=== PATIENT | female | born 1955 | race Caucasian/White ===

== ENCOUNTER 2018-11-20 19:25 | Inpatient (IN) | payer OTHER ==
[~2018-11-20] VITALS: Ht 167.6 cm; Wt 56.5 kg
[2018-11-20 19:43] VITALS: Ht 167.6 cm; Wt 56.5 kg
[2018-11-21] MEDS ORDERED: ONDANSETRON 4 MG INJ IV STA (01:42)
--- NOTE | 2018-11-21 02:18 | ERD ---
ER Documentation Chief Complaint Chief Complaint EPIGASTRIC/ ABD PAIN X'S 1 WEEK HPI This is a 63-year-old woman complaining of increasing abdominal distention, bloating, diffuse cramping times 1 month. She states symptoms began after her unexpectedly earlier this month. She also states she has had increasing lower extremity edema over the last month which is new for her. She does have a history of CEA positive ovarian cancer which she states was treated with chemotherapy about 28 years ago. She states today she had one episode of clear nonbloody nonbilious emesis. She denies weight loss, no fevers or chills, no blood per rectum or melena. She denies chest pain or shortness of breath. ROS All systems reviewed and are negative except as per history of present illness. Medications Home Meds Reported Medications Benazepril Hcl* (Benazepril Hcl*) 20 Mg Tablet, 20 MG PO DAILY, #30 TAB 11/21/18 Allergies Allergies: Coded Allergies: No Known Allergy (Unverified , 11/20/18) PMhx/Soc History of ovarian CA Hx Alcohol Use: No Hx Substance Use: No Hx Tobacco Use: No Smoking Status: Never smoker FmHx Family History: No diabetes Physical Exam Vitals Vital Signs Date Temp Pulse Resp B/P (MAP) Pulse Ox O2 O2 Flow FiO2 Time Delivery Rate 11/21/18 97.8 90 122/74 97 Room Air 01:31 (90) 11/20/18 98.8 105 18 145/86 97 19:43 (105) Physical Exam Const: No acute distress, afebrile Head: Atraumatic Eyes: Normal Conjunctiva ENT: Normal External Ears, Nose and Mouth. Neck: Full range of motion. No meningismus. Resp: Clear to auscultation bilaterally Cardio: Regular rate and rhythm, no murmurs Abd: Bloated, soft protuberant abdomen, no guarding or masses palpated, no rigidity Skin: No petechiae or rashes Back: No midline or flank tenderness Ext: No cyanosis, 2+ pitting edema in the lower extremities bilaterally, calves symmetrical Neur: Awake and alert x3, no focal deficits or facial asymmetry, pupils equal round reactive to light Psych: Normal Mood and Affect Result Diagram: 11/21/18 0132 11/21/18 0132 Results 24 hrs Laboratory Tests Test 11/21/18 01:32 11/21/18 02:16 White Blood Count 6.0 10^3/ul Red Blood Count 3.58 10^6/ul Hemoglobin 10.8 g/dl Hematocrit 33.6 % Mean Corpuscular Volume 93.9 fl Mean Corpuscular Hemoglobin 30.2 pg Mean Corpuscular Hemoglobin Concent 32.1 g/dl Red Cell Distribution Width 14.4 % Platelet Count 346 10^3/UL Mean Platelet Volume 9.1 fl Immature Granulocytes % 0.300 % Neutrophils % 63.1 % Lymphocytes % 26.6 % Monocytes % 7.8 % Eosinophils % 1.7 % Basophils % 0.5 % Nucleated Red Blood Cells % 0.0 /100WBC Immature Granulocytes # 0.020 10^3/ul Neutrophils # 3.8 10^3/ul Lymphocytes # 1.6 10^3/ul Monocytes # 0.5 10^3/ul Eosinophils # 0.1 10^3/ul Basophils # 0.0 10^3/ul Nucleated Red Blood Cells # 0.0 10^3/ul Prothrombin Time 12.6 Sec Prothrombin Time Ratio 1.0 INR International Normalized Ratio 0.93 Activated Partial Thromboplast Time 29.6 Sec Sodium Level 136 mmol/L Potassium Level 4.0 mmol/L Chloride Level 103 mmol/L Carbon Dioxide Level 24 mmol/L Anion Gap 9 Blood Urea Nitrogen 21 mg/dl Creatinine 1.50 mg/dl Est Glomerular Filtrat Rate mL/min 35 mL/min Glucose Level 93 mg/dl Calcium Level 9.6 mg/dl Total Bilirubin 0.4 mg/dl Direct Bilirubin 0.00 mg/dl Indirect Bilirubin 0.4 mg/dl Aspartate Amino Transf (AST/SGOT) 37 IU/L Alanine Aminotransferase (ALT/SGPT) 27 IU/L Alkaline Phosphatase 51 IU/L Troponin I < 0.012 ng/ml B-Type Natriuretic Peptide 127 PG/ML Total Protein 6.6 g/dl Albumin 3.8 g/dl Globulin 2.80 g/dl Albumin/Globulin Ratio 1.35 Lipase 231 U/L Urine Color YELLOW Urine Clarity SLIGHTLY CLOUDY Urine pH 5.0 Urine Specific [place] 1.008 Urine Ketones TRACE mg/dL Urine Nitrite NEGATIVE mg/dL Urine Bilirubin NEGATIVE mg/dL Urine Urobilinogen NEGATIVE mg/dL Urine Leukocyte Esterase NEGATIVE Xuan/ul Urine Microscopic RBC 2 /HPF Urine Microscopic WBC 2 /HPF Urine Squamous Epithelial Cells FEW /HPF Urine Hemoglobin NEGATIVE mg/dL Urine Glucose NEGATIVE mg/dL Urine Total Protein NEGATIVE mg/dl Current Medications Medications Dose Sig/Irena Start Time Status Last (Trade) Ordered Route PRN Stop Time Admin Dose Reason Admin Ondansetron 4 mg ONCE STAT 11/21/18 DC 11/21/18 HCl (Zofran IV 01:42 02:14 Inj) 11/21/18 01:43 Procedures/MDM IV line was established patient was placed on lift supervisor rhythm strip revealed a sinus rhythm at about 80 bpm with upright P and T waves. Patient was afebrile I administered Zofran 4 mg IV x1 for nausea. EKG performed, read by me: 83 bpm, normal sinus rhythm, normal axis, no acute ST segment changes, narrow QRS complex, with good R-wave progression in precordial leads. Chest X-ray 1V Interpreted by me: Soft Tissue: No acute abnormalities Bones: No acute abnormalities Mediastinum/Cardiac Silhouette/Lungs: No acute abnormalities CBC was normal, electrolytes revealed dehydration with a BUN/creatinine of 21/1.5, liver function tests were normal, troponin was negative, urinalysis negative for infection CT scan of the abdomen and pelvis was performed,IMPRESSION: 1. Large diffuse ascites and mild anasarca. 2. Extensive left upper quadrant mesenteric/omental stranding and nodularity may reflect pathologic lymphadenopathy or peritoneal carcinomatosis. 3. Multiple embolic coils noted in the left pelvic sidewall, with associated star artifact limiting pelvic evaluation. 4. Question gastric wall thickening in the fundus and body, which may be artif actual due to incomplete distension or could reflect gastritis or neoplasm. Clinical correlation recommended with consideration for further evaluation with upper endoscopy. 5. Tiny sliding hiatal hernia. The bowel is unobstructed without evidence of perforation, and the appendix is nondilated. 6. Cholelithiasis versus sludge in the mildly distended gallbladder. This can be better evaluated with nuclear medicine HIDA scan if clinically warranted. 7. No nephrolithiasis nor hydronephrosis. Patient has new mesenteric lymphadenopathy with peritoneal carcinomatosis concerning for ovarian carcinoma. Patient will be admitted to [facility] for continued medical management Departure Diagnosis: Primary Impression: Carcinomatosis Additional Impressions: Ovarian cancer Laterality: bilateral Qualified Codes: C56.1 - Malignant neoplasm of right ovary; C56.2 - Malignant neoplasm of left ovary Intractable abdominal pain Acute kidney injury Condition: Fair ZOHRABIAN,ASHLIE MD Nov 21, 2018 02:18
[2018-11-21] MEDS ORDERED: BENA20TA4 PO (03:15)
[2018-11-21 04:15] VITALS: BP 106/56; PULSE 87; RESP 20
[2018-11-21] MEDS ORDERED: FUROSEMIDE 20 MG INJ IV ONE (04:30)
[2018-11-21] MEDS ORDERED: ACETAMINOPHEN 325 MG TAB PO PRN (04:30)
[2018-11-21] MEDS ORDERED: ALBUTEROL/IPRATROPIUM (NEB) 3 ML AMP HHN PRN (04:30)
[2018-11-21] MEDS ORDERED: NACL 0.9% 3 ML SYG IV SCH (04:30)
[2018-11-21] MEDS ORDERED: ONDANSETRON 4 MG INJ IV PRN (04:30)
--- NOTE | 2018-11-21 05:58 | HP ---
Date/Time of Note Date/Time of Note DATE: 11/21/18 TIME: 05:58 Assessment/Plan VTE Prophylaxis SCD applied (from Nsg): Yes Pharmacological prophylaxis: NA/contraindicated Pharm contraindication: other (Awaiting paracentesis) Lines/Catheters IV Catheter Type (from Nrsg): Saline Lock Assessment/Plan Assessment/Plan 1. Abdominal pain/distention: CT shows large ascites and likely metastatic process. (Patient with a history of ovarian cancer almost 30 years ago) -will give a dose of Lasix -Paracentesis. Sample will be sent for cytology as well 2. History of ovarian cancer (30 years ago), now with a CT finding concerning for metastatic process -Oncology consult -Check CEA. Reportedly ovarian cancer was CEA positive 3. Presumed acute renal insufficiency: will give albumin prior to paracentesis -Renal ultrasound and nephrology consult 4. Anemia, likely of chronic disease: Check ferritin/iron. Transfuse as needed 5. Hypertension: BP is in acceptable range Result Diagram: 11/21/18 0132 11/21/18 0132 Results 24hrs Laboratory Tests Test 11/21/18 01:32 11/21/18 02:16 White Blood Count 6.0 Red Blood Count 3.58 L Hemoglobin 10.8 L Hematocrit 33.6 L Mean Corpuscular Volume 93.9 Mean Corpuscular Hemoglobin 30.2 Mean Corpuscular Hemoglobin Concent 32.1 Red Cell Distribution Width 14.4 Platelet Count 346 Mean Platelet Volume 9.1 Immature Granulocytes % 0.300 Neutrophils % 63.1 Lymphocytes % 26.6 Monocytes % 7.8 Eosinophils % 1.7 Basophils % 0.5 Nucleated Red Blood Cells % 0.0 Immature Granulocytes # 0.020 Neutrophils # 3.8 Lymphocytes # 1.6 Monocytes # 0.5 Eosinophils # 0.1 Basophils # 0.0 Nucleated Red Blood Cells # 0.0 Prothrombin Time 12.6 Prothrombin Time Ratio 1.0 INR International Normalized Ratio 0.93 Activated Partial Thromboplast Time 29.6 Sodium Level 136 Potassium Level 4.0 Chloride Level 103 Carbon Dioxide Level 24 Anion Gap 9 Blood Urea Nitrogen 21 H Creatinine 1.50 H Est Glomerular Filtrat Rate mL/min 35 L Glucose Level 93 Calcium Level 9.6 Total Bilirubin 0.4 Direct Bilirubin 0.00 Indirect Bilirubin 0.4 Aspartate Amino Transf (AST/SGOT) 37 Alanine Aminotransferase (ALT/SGPT) 27 Alkaline Phosphatase 51 Troponin I < 0.012 B-Type Natriuretic Peptide 127 H Total Protein 6.6 Albumin 3.8 Globulin 2.80 Albumin/Globulin Ratio 1.35 Lipase 231 Urine Color YELLOW Urine Clarity SLIGHTLY CLOUDY A Urine pH 5.0 Urine Specific [place] 1.008 Urine Ketones TRACE A Urine Nitrite NEGATIVE Urine Bilirubin NEGATIVE Urine Urobilinogen NEGATIVE Urine Leukocyte Esterase NEGATIVE Urine Microscopic RBC 2 Urine Microscopic WBC 2 Urine Squamous Epithelial Cells FEW Urine Hemoglobin NEGATIVE Urine Glucose NEGATIVE Urine Total Protein NEGATIVE HPI/ROS Admit Date/Time Admit Date/Time Nov 21, 2018 at 03:20 Hx of Present Illness This is a 63-year-old female with a history of hypertension and ovarian cancer almost 30 years ago who presented to the ER complaining of progressively worsening abdominal pain/distention, lower extremity swelling, generalized weakness and nausea/vomiting. Symptom has been progressively getting worse for the past several weeks. In the ER, vitals have been stable except heart rate of 105 at initial presentation. Lab shows a creatinine of 1.5, hemoglobin almost 11. CT abdomen/pelvis shows large diffuse ascites and finding concerning for peritoneal carcinomatosis. Also noted was gastric wall thickening. PMH/Family/Social Past Medical History Medical History: other (See HPI) Medications Current Medications IV Flush (NS 3 ml) 3 ml PER PROTOCOL IV Last administered on 11/21/18at 05:24; Admin Dose 3 ML; Start 11/21/18 at 04:30 Ondansetron HCl (Zofran Inj) 4 mg Q6H PRN IV NAUSEA/VOMITING; Start 11/21/18 at 04:30 Acetaminophen (Tylenol Tab) 650 mg Q6H PRN PO .PAIN 1-3 OR TEMP; Start 11/21/18 at 04:30 Albuterol/ Ipratropium (Duoneb) 3 ml Q2H RESP THERAPY PRN HHN SHORTNESS OF BREATH; Start 11/21/18 at 04:30 Coded Allergies: No Known Allergy (Unverified , 11/20/18) Past Surgical History Past Surgical Hx: other (See HPI) Family History Significant Family History: other Social History Alcohol Use: none Smoking Status: Never smoker Drug Use: none Exam/Review of Systems Vital Signs Vitals Vital Signs Date Temp Pulse Resp B/P (MAP) Pulse Ox O2 O2 Flow FiO2 Time Delivery Rate 11/21/18 98.4 87 20 106/56 96 04:15 (73) 11/21/18 Room Air 03:42 Exam Constitutional: other (No acute distress) Head: normocephalic, atraumatic Eyes: EOMI, PERRL Respiratory: other (Decreased breath sounds at the base bilaterally) Cardiovascular: regular rate and rhythm Gastrointestinal: distended, tender Extremities: edema ANKIT DONG MD Nov 21, 2018 05:58
[2018-11-21] MEDS ORDERED: ALBUMIN HUMAN 25% 100 ML IV ONE (06:30)
[2018-11-21 07:29] VITALS: BP 115/54; PULSE 95; RESP 18
[2018-11-21] MEDS ORDERED: morphine 2 MG INJ IV PRN (12:30)
[2018-11-21 13:30] VITALS: BP 109/60; PULSE 90; RESP 18
--- NOTE | 2018-11-21 13:32 | PN ---
Date/Time of Note Date/Time of Note DATE: 11/21/18 TIME: 13:29 Assessment/Plan VTE Prophylaxis Risk score (from Ns)>0 risk: 4 SCD applied (from Ns): Yes SCD contraindicated: low risk/ambulating Pharmacological prophylaxis: LMWH Lines/Catheters IV [facility]from [facility] Saline Lock Assessment/Plan Hospital Course Assessment and plan 1. Abdominal discomfort distention, due to ascites, stable, paracentesis ending 2. Ascites new onset, decompensated cirrhosis vs peritoneal carcinomatosis? Check paracentesis 3. History of ovarian cancer 4. Anemia likely of chronic disease? 5. Suspected recurrent ovarian cancer with peritoneal carcinomatosis. Will consult oncology today or Friday. 6. Chronic kidney disease? 7. Left leg weakness? Rule out DVT. probably due to venous distention Subjective: Admitted with abdominal distention for a few weeks. No fever nausea. Appetite was poor. Possible weight loss. Alcohol or smoking. history of ovarian cancer. History of colonoscopy? Objective: Vital signs stable Physical exam No pathologic adenopathy Regular no murmur gallop Clear Bowel sounds diminished nontender mild distended no rigidity rebound guarding No edema mild left ankle noted Result Diagram: 11/21/18 0132 11/21/18 0132 Results 24hrs Laboratory Tests Test 11/21/18 01:30 11/21/18 01:32 11/21/18 02:16 Carcinoembryonic Antigen 1.2 White Blood Count 6.0 Red Blood Count 3.58 L Hemoglobin 10.8 L Hematocrit 33.6 L Mean Corpuscular Volume 93.9 Mean Corpuscular Hemoglobin 30.2 Mean Corpuscular 32.1 Hemoglobin Concent Red Cell Distribution Width 14.4 Platelet Count 346 Mean Platelet Volume 9.1 Immature Granulocytes % 0.300 Neutrophils % 63.1 Lymphocytes % 26.6 Monocytes % 7.8 Eosinophils % 1.7 Basophils % 0.5 Nucleated Red Blood Cells % 0.0 Immature Granulocytes # 0.020 Neutrophils # 3.8 Lymphocytes # 1.6 Monocytes # 0.5 Eosinophils # 0.1 Basophils # 0.0 Nucleated Red Blood Cells # 0.0 Prothrombin Time 12.6 Prothrombin Time Ratio 1.0 INR International 0.93 Normalized Ratio Activated Partial Thromboplast 29.6 Time Sodium Level 136 Potassium Level 4.0 Chloride Level 103 Carbon Dioxide Level 24 Anion Gap 9 Blood Urea Nitrogen 21 H Creatinine 1.50 H Est Glomerular Filtrat 35 L Rate mL/min Glucose Level 93 Calcium Level 9.6 Total Bilirubin 0.4 Direct Bilirubin 0.00 Indirect Bilirubin 0.4 Aspartate Amino 37 Transf (AST/SGOT) Alanine 27 Aminotransferase (ALT/SGPT) Alkaline Phosphatase 51 Troponin I < 0.012 B-Type Natriuretic Peptide 127 H Total Protein 6.6 Albumin 3.8 Globulin 2.80 Albumin/Globulin Ratio 1.35 Lipase 231 Urine Color YELLOW Urine Clarity SLIGHTLY CLOUDY A Urine pH 5.0 Urine Specific [place] 1.008 Urine Ketones TRACE A Urine Nitrite NEGATIVE Urine Bilirubin NEGATIVE Urine Urobilinogen NEGATIVE Urine Leukocyte Esterase NEGATIVE Urine Microscopic RBC 2 Urine Microscopic WBC 2 Urine Squamous FEW Epithelial Cells Urine Hemoglobin NEGATIVE Urine Glucose NEGATIVE Urine Total Protein NEGATIVE Exam/Review of Systems Exam Vitals Vital Signs Date Temp Pulse Resp B/P (MAP) Pulse Ox O2 O2 Flow FiO2 Time Delivery Rate 11/21/18 98.3 95 18 115/54 93 07:29 (74) 11/21/18 Room Air 03:42 Results Results 24hrs Laboratory Tests Test 11/21/18 01:30 11/21/18 01:32 11/21/18 02:16 Carcinoembryonic Antigen 1.2 White Blood Count 6.0 Red Blood Count 3.58 L Hemoglobin 10.8 L Hematocrit 33.6 L Mean Corpuscular Volume 93.9 Mean Corpuscular Hemoglobin 30.2 Mean Corpuscular 32.1 Hemoglobin Concent Red Cell Distribution Width 14.4 Platelet Count 346 Mean Platelet Volume 9.1 Immature Granulocytes % 0.300 Neutrophils % 63.1 Lymphocytes % 26.6 Monocytes % 7.8 Eosinophils % 1.7 Basophils % 0.5 Nucleated Red Blood Cells % 0.0 Immature Granulocytes # 0.020 Neutrophils # 3.8 Lymphocytes # 1.6 Monocytes # 0.5 Eosinophils # 0.1 Basophils # 0.0 Nucleated Red Blood Cells # 0.0 Prothrombin Time 12.6 Prothrombin Time Ratio 1.0 INR International 0.93 Normalized Ratio Activated Partial Thromboplast 29.6 Time Sodium Level 136 Potassium Level 4.0 Chloride Level 103 Carbon Dioxide Level 24 Anion Gap 9 Blood Urea Nitrogen 21 H Creatinine 1.50 H Est Glomerular Filtrat 35 L Rate mL/min Glucose Level 93 Calcium Level 9.6 Total Bilirubin 0.4 Direct Bilirubin 0.00 Indirect Bilirubin 0.4 Aspartate Amino 37 Transf (AST/SGOT) Alanine 27 Aminotransferase (ALT/SGPT) Alkaline Phosphatase 51 Troponin I < 0.012 B-Type Natriuretic Peptide 127 H Total Protein 6.6 Albumin 3.8 Globulin 2.80 Albumin/Globulin Ratio 1.35 Lipase 231 Urine Color YELLOW Urine Clarity SLIGHTLY CLOUDY A Urine pH 5.0 Urine Specific [place] 1.008 Urine Ketones TRACE A Urine Nitrite NEGATIVE Urine Bilirubin NEGATIVE Urine Urobilinogen NEGATIVE Urine Leukocyte Esterase NEGATIVE Urine Microscopic RBC 2 Urine Microscopic WBC 2 Urine Squamous FEW Epithelial Cells Urine Hemoglobin NEGATIVE Urine Glucose NEGATIVE Urine Total Protein NEGATIVE Medications Medication Current Medications IV Flush (NS 3 ml) 3 ml PER PROTOCOL IV Last administered on 11/21/18at 05:24; Admin Dose 3 ML; Start 11/21/18 at 04:30 Ondansetron HCl (Zofran Inj) 4 mg Q6H PRN IV NAUSEA/VOMITING; Start 11/21/18 at 04:30 Acetaminophen (Tylenol Tab) 650 mg Q6H PRN PO .PAIN 1-3 OR TEMP; Start 11/21/18 at 04:30 Albuterol/ Ipratropium (Duoneb) 3 ml Q2H RESP THERAPY PRN HHN SHORTNESS OF BREATH; Start 11/21/18 at 04:30 Enoxaparin Sodium (Lovenox) 40 mg DAILY SC ; Start 11/23/18 at 09:00 Famotidine (Pepcid) 20 mg DAILY PO ; Start 11/22/18 at 09:00 Morphine Sulfate (morphine) 2 mg Q2H PRN IV SEVERE PAIN LEVEL 7-10; Start 11/21/18 at 12:30 ORACIO IGNACIO MD Nov 21, 2018 13:32
[2018-11-21] MEDS ORDERED: LIDOCAINE 1% (MPF) 5 ML VIAL ONE (15:46)
[2018-11-21 20:00] VITALS: BP 124/57; PULSE 88; RESP 18
[2018-11-22 02:00] VITALS: BP 103/54; PULSE 92; RESP 18
[2018-11-22] MEDS: ALBUMIN HUMAN 25% 50 ML IV SCH ×3 (06:41→22:54)
[2018-11-22 07:45] VITALS: BP 107/54; PULSE 82; RESP 18
[2018-11-22] MEDS: FAMOTIDINE 20 MG TAB PO SCH (10:03)
--- NOTE | 2018-11-22 13:11 | PN ---
Date/Time of Note Date/Time of Note DATE: 11/22/18 TIME: 13:08 Assessment/Plan VTE Prophylaxis Risk score (from Ns)>0 risk: 4 SCD applied (from Ns): Yes SCD contraindicated: low risk/ambulating Pharmacological prophylaxis: LMWH Lines/Catheters IV [facility]atheter [facility] (from [facility]): Saline Lock Assessment/Plan Hospital Course Assessment and plan 1. Abd distention, due to ascites, stable, paracentesis- P 2. Ascites new onset, decompensated cirrhosis vs peritoneal carcinomatosis? Check paracentesis 3. History of ovarian cancer 4. Anemia likely of chronic disease? 5. 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 may need oncology consult once path back. 6. Chronic kidney disease? 7. Left leg weakness? no DVT. probably due to venous distention S: admitted with abdominal distention for a few weeks. No fever nausea. Appetite was poor. Possible weight loss. Alcohol or smoking. history of ovarian cancer. History of colonoscopy? 11/22 feels a little better. I updated her regarding the potential causes such as infection or cancer Objective: Vital signs stable Physical exam No pallor Regular no m/r/g Clear Bs dimin nt nd no r/r/g No edema mild left ankle noted Result Diagram: 11/22/18 0421 11/22/18 0421 Results 24hrs Laboratory Tests Test 11/21/18 15:30 11/22/18 04:19 11/22/18 04:21 11/22/18 04:22 Pathologist Review (Hematology) Body Fluid Type ASCITES Body Fluid Volume 1050.0 Body Fluid Color RED Body Fluid BLOODY Appearance Body Fluid WBC 973 Body Fluid RBC 209453 (Auto) Body Fluid 10.6 Polynuclear WBCs (%) Body Fluid 89.4 Mononuclear Cells % Auto Body Fluid Total 4.8 Protein Thyroid Stimulating 4.160 Hormone (TSH) White Blood Count 5.4 Red Blood Count 3.01 L Hemoglobin 9.1 L Hematocrit 28.0 L Mean Corpuscular 93.0 Volume Mean Corpuscular 30.2 Hemoglobin Mean Corpuscular 32.5 Hemoglobin Concent Red Cell 14.7 H Distribution Width Platelet Count 309 Mean Platelet Volume 9.4 Immature 0.200 Granulocytes % Neutrophils % 72.2 Lymphocytes % 16.3 Monocytes % 9.2 Eosinophils % 1.5 Basophils % 0.6 Nucleated Red Blood 0.0 Cells % Immature 0.010 Granulocytes # Neutrophils # 3.9 Lymphocytes # 0.9 Monocytes # 0.5 Eosinophils # 0.1 Basophils # 0.0 Nucleated Red Blood 0.0 Cells # Sodium Level 139 Potassium Level 4.2 Chloride Level 108 Carbon Dioxide Level 25 Anion Gap 6 Blood Urea Nitrogen 21 H Creatinine 1.50 H Est Glomerular 35 L Filtrat Rate mL/min Glucose Level 89 Calcium Level 8.8 Phosphorus Level 4.4 Magnesium Level 2.0 Total Bilirubin 0.5 Direct Bilirubin 0.00 Indirect Bilirubin 0.5 Aspartate Amino 25 Transf (AST/SGOT) Alanine 26 Aminotransferase (AL T/SGPT) Alkaline Phosphatase 40 L Lactate 550 Dehydrogenase Total Protein 5.2 #L Albumin 2.9 L Globulin 2.30 Albumin/Globulin 1.26 Ratio Triglycerides Level 72 Cholesterol Level 138 LDL Cholesterol, 81 Calculated HDL Cholesterol 43 Cholesterol/HDL 3.2 Ratio Prothrombin Time 13.6 Prothrombin Time 1.1 Ratio INR International 1.03 Normalized Ratio Hemoglobin A1c 5.5 Exam/Review of Systems Exam Vitals Vital Signs Date Temp Pulse Resp B/P (MAP) Pulse Ox O2 O2 Flow FiO2 Time Delivery Rate 11/22/18 98.6 82 18 107/54 93 07:45 (71) 11/21/18 Room Air 03:42 Intake and Output 11/21/18 11/21/18 11/22/18 1515:00 23:00 07:00 IntakeIntake Total 100 ml 250 ml 200 ml OutputOutput Total 450 ml 650 ml BalanceBalance -350 ml 250 ml -450 ml Results Results 24hrs Laboratory Tests Test 11/21/18 15:30 11/22/18 04:19 11/22/18 04:21 11/22/18 04:22 Pathologist Review (Hematology) Body Fluid Type ASCITES Body Fluid Volume 1050.0 Body Fluid Color RED Body Fluid BLOODY Appearance Body Fluid WBC 973 Body Fluid RBC [id number] (Auto) Body Fluid 10.6 Polynuclear WBCs (%) Body Fluid 89.4 Mononuclear Cells % Auto Body Fluid Total 4.8 Protein Thyroid Stimulating 4.160 Hormone (TSH) White Blood Count 5.4 Red Blood Count 3.01 L Hemoglobin 9.1 L Hematocrit 28.0 L Mean Corpuscular 93.0 Volume Mean Corpuscular 30.2 Hemoglobin Mean Corpuscular 32.5 Hemoglobin Concent Red Cell 14.7 H Distribution Width Platelet Count 309 Mean Platelet Volume 9.4 Immature 0.200 Granulocytes % Neutrophils % 72.2 Lymphocytes % 16.3 Monocytes % 9.2 Eosinophils % 1.5 Basophils % 0.6 Nucleated Red Blood 0.0 Cells % Immature 0.010 Granulocytes # Neutrophils # 3.9 Lymphocytes # 0.9 Monocytes # 0.5 Eosinophils # 0.1 Basophils # 0.0 Nucleated Red Blood 0.0 Cells # Sodium Level 139 Potassium Level 4.2 Chloride Level 108 Carbon Dioxide Level 25 Anion Gap 6 Blood Urea Nitrogen 21 H Creatinine 1.50 H Est Glomerular 35 L Filtrat Rate mL/min Glucose Level 89 Calcium Level 8.8 Phosphorus Level 4.4 Magnesium Level 2.0 Total Bilirubin 0.5 Direct Bilirubin 0.00 Indirect Bilirubin 0.5 Aspartate Amino 25 Transf (AST/SGOT) Alanine 26 Aminotransferase (AL T/SGPT) Alkaline Phosphatase 40 L Lactate 550 Dehydrogenase Total Protein 5.2 #L Albumin 2.9 L Globulin 2.30 Albumin/Globulin 1.26 Ratio Triglycerides Level 72 Cholesterol Level 138 LDL Cholesterol, 81 Calculated HDL Cholesterol 43 Cholesterol/HDL 3.2 Ratio Prothrombin Time 13.6 Prothrombin Time 1.1 Ratio INR International 1.03 Normalized Ratio Hemoglobin A1c 5.5 Medications Medication Current Medications IV Flush (NS 3 ml) 3 ml PER PROTOCOL IV Last administered on 11/21/18at 05:24; Admin Dose 3 ML; Start 11/21/18 at 04:30 Ondansetron HCl (Zofran Inj) 4 mg Q6H PRN IV NAUSEA/VOMITING Last administered on 11/21/18at 14:23; Admin Dose 4 MG; Start 11/21/18 at 04:30 Acetaminophen (Tylenol Tab) 650 mg Q6H PRN PO .PAIN 1-3 OR TEMP; Start 11/21/18 at 04:30 Albuterol/ Ipratropium (Duoneb) 3 ml Q2H RESP THERAPY PRN HHN SHORTNESS OF BREATH; Start 11/21/18 at 04:30 Enoxaparin Sodium (Lovenox) 40 mg DAILY SC ; Start 11/23/18 at 09:00 Famotidine (Pepcid) 20 mg DAILY PO Last administered on 11/22/18at 10:03; Admin Dose 20 MG; Start 11/22/18 at 09:00 Morphine Sulfate (morphine) 2 mg Q2H PRN IV SEVERE PAIN LEVEL 7-10; Start 11/21/18 at 12:30 Albumin Human 50 ml @ 100 mls/hr Q8H IV Last administered on 11/22/18at 06:41; Admin Dose 100 MLS/HR; Start 11/22/18 at 07:00; Stop 11/22/18 at 23:29 ORACIO IGNACIO MD Nov 22, 2018 13:11
[2018-11-22 14:00] VITALS: BP 121/66; PULSE 88; RESP 18
[2018-11-22 21:16] VITALS: BP 114/55; PULSE 87; RESP 18
[2018-11-23 02:14] VITALS: BP 101/50; PULSE 80; RESP 18
[2018-11-23 07:18] VITALS: BP 108/58; PULSE 82; RESP 18
[2018-11-23] MEDS ORDERED: ENOXAPARIN 40 MG/0.4 ML SYG SC SCH (09:00)
[2018-11-23] MEDS: FAMOTIDINE 20 MG TAB PO SCH (09:25)
--- NOTE | 2018-11-23 10:50 | CONS ---
Assessment/Plan Assessment/Plan Hospital Course (Demo Recall) #h/o ovarian cancer #bloody ascites s/p paracentesis #Gastric wall thickening on CT scan -will follow up path from paracentesis -tumor markers ordered including CA 125. CEA. CA 19-9 , CA 15-3, CA 27-29 -pt will need EGD/ colonoscopy to rule out underlying GI malignancy -will follow up once above tests have resulted Thank you for the opportunity to participate in this patients care A total of 40 minutes of face to face time was spent speaking with the patient, of which greater than 50% was spent in counseling and coordination of care and the detailed question and answer session. Consultation Date/Type/Reason Admit Date/Time Nov 21, 2018 at 03:20 Date of Consultation: Nov 23, 2018 Type of Consult oncology Reason for Consultation peritoneal carcinomatosis Requesting Provider: ORACIO IGNACIO MD Date/Time of Note DATE: 11/23/18 TIME: 10:40 Hx of Present Illness Ms Muñiz is a pleasant 63 yo female with history of ovarian cancer from 30 years ago. Pt now presents with abdominal distension. 11/21/18 CT A/P WITHOUT contrast was done which revealed large diffuse ascites and mild anasarca with extensive left upper quadrant mesenteric/ omental stranding and nodularity which may reflect pathologic LAD or peritoneal carcinomatosis. There is also a question of gastric wall thickening. Liver appears normal 11/21/18 pt underwent paracentesis where 5L of serosanguineous ascites was drained. Cytology was sent to path which is currently pending. 11/22/18 Abdominal ultrasound demonstrates large volume ascites Constitutional: diaphoresis Eyes: no complaints ENT: no complaints Respiratory: pleuritic pain Cardiovascular: lightheadedness Gastrointestinal: decreased appetite, nausea, other (increased abdominal distension) Genitourinary: no complaints Musculoskeletal: bone/joint pain Skin: no complaints Neurologic: no complaints Past Medical History h/o ovarian cancer Medical History: other (See HPI) Home Meds Reported Medications Benazepril Hcl* (Benazepril Hcl*) 20 Mg Tablet, 20 MG PO DAILY, #30 TAB 11/21/18 Medications Current Medications IV Flush (NS 3 ml) 3 ml PER PROTOCOL IV Last administered on 11/21/18at 05:24; Admin Dose 3 ML; Start 11/21/18 at 04:30 Ondansetron HCl (Zofran Inj) 4 mg Q6H PRN IV NAUSEA/VOMITING Last administered on 11/21/18at 14:23; Admin Dose 4 MG; Start 11/21/18 at 04:30 Acetaminophen (Tylenol Tab) 650 mg Q6H PRN PO .PAIN 1-3 OR TEMP; Start 11/21/18 at 04:30 Albuterol/ Ipratropium (Duoneb) 3 ml Q2H RESP THERAPY PRN HHN SHORTNESS OF BREATH; Start 11/21/18 at 04:30 Enoxaparin Sodium (Lovenox) 40 mg DAILY SC Last administered on 11/23/18at 09:26; Admin Dose 40 MG; Start 11/23/18 at 09:00 Famotidine (Pepcid) 20 mg DAILY PO Last administered on 11/23/18at 09:25; Admin Dose 20 MG; Start 11/22/18 at 09:00 Morphine Sulfate (morphine) 2 mg Q2H PRN IV SEVERE PAIN LEVEL 7-10; Start 11/21/18 at 12:30 Allergies: Coded Allergies: No Known Allergy (Unverified , 11/20/18) Past Surgical History Past Surgical Hx: other (See HPI) Social History Alcohol Use: none Smoking Status: Never smoker Drug Use: none Exam/Review of Systems Exam Vitals Vital Signs Date Temp Pulse Resp B/P (MAP) Pulse Ox O2 O2 Flow FiO2 Time Delivery Rate 11/23/18 98.6 82 18 108/58 95 07:18 (75) 11/21/18 Room Air 03:42 Intake and Output 11/22/18 11/22/18 11/23/18 1414:59 22:59 06:59 IntakeIntake Total 50 ml 450 ml 50 ml BalanceBalance 50 ml 450 ml 50 ml Constitutional: alert, oriented, frail Psych: anxiety Head: normocephalic Eyes: nl conjunctiva ENMT: nl external ears & nose Neck: supple Respiratory: clear to auscultation Cardiovascular: regular rate and rhythm Gastrointestinal: other (ascites) Genitourinary - Female: nl adnexae Musculoskeletal: nl extremities to inspection Results Result Diagram: 11/22/1842011/22/18420 Medications Medication Current Medications IV Flush (NS 3 ml) 3 ml PER PROTOCOL IV Last administered on 11/21/18at 05:24; Admin Dose 3 ML; Start 11/21/18 at 04:30 Ondansetron HCl (Zofran Inj) 4 mg Q6H PRN IV NAUSEA/VOMITING Last administered on 11/21/18at 14:23; Admin Dose 4 MG; Start 11/21/18 at 04:30 Acetaminophen (Tylenol Tab) 650 mg Q6H PRN PO .PAIN 1-3 OR TEMP; Start 11/21/18 at 04:30 Albuterol/ Ipratropium (Duoneb) 3 ml Q2H RESP THERAPY PRN HHN SHORTNESS OF BREATH; Start 11/21/18 at 04:30 Enoxaparin Sodium (Lovenox) 40 mg DAILY SC Last administered on 11/23/18at 09:26; Admin Dose 40 MG; Start 11/23/18 at 09:00 Famotidine (Pepcid) 20 mg DAILY PO Last administered on 11/23/18at 09:25; Admin Dose 20 MG; Start 11/22/18 at 09:00 Morphine Sulfate (morphine) 2 mg Q2H PRN IV SEVERE PAIN LEVEL 7-10; Start 11/21/18 at 12:30 LIZ SILVEIRA M.D. Nov 23, 2018 10:50
--- NOTE | 2018-11-23 11:53 | PN ---
Date/Time of Note Date/Time of Note DATE: 11/23/18 TIME: 11:51 Assessment/Plan VTE Prophylaxis Risk score (from Ns)>0 risk: 4 SCD applied (from Ns): Yes Pharmacological prophylaxis: LMWH Lines/Catheters IV C[facility]ter Type [facility]from [facility] Saline Lock Assessment/Plan Hospital Course SUBJECTIVE: Denies any abdominal pain. OBJECTIVE: Physical Exam General: Adequately build 63 year-old female lying in bed in no apparent distress. HEENT: Normocephalic, atraumatic. Eyes: Anicteric sclerae, conjunctivae clear. ENT: Nasal septum midline, oral mucosa moist. Neck supple. Respiratory: Bilaterally clear breath sounds. No use of accessory muscles of respiration. No adventitious breath sounds. Cardiovascular: S1, S2 heard. Regular rate and rhythm. Abdomen: Soft and non-distended. Bowel sounds positive in all 4 quadrants. Genitourinary: Deferred. Extremities: No cyanosis, no clubbing, no edema. Peripheral pulses palpable. Neurologic: Cranial nerves II through XII grossly intact. The patient is awake, alert, and oriented. Skin: Normal skin turgor. No skin rashes. Labs & Vitals per chart ASSESSMENT & PLAN 63-year-old female with remote history of ovarian cancer, who presented to the emergency room with chief complaint of abdominal distention. The patient underwent an ultrasound-guided paracentesis with removal of 5000 cc of dark red fluid. CT scan of the abdomen and pelvis was showing extensive left upper quadrant mesenteric/omental stranding and nodularity which may reflect pathology of lymphadenopathy or peritoneal carcinomatosis. The patient was admitted to inpatient setting for further treatment and evaluation. 1. New onset ascites. -Status post paracentesis with drainage of 5 L of dark red fluid. -Pathology pending. -Being followed by oncology. 2. History of ovarian cancer. -Being followed by oncology. 3. 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 -Being followed by oncology. -Pending gastroenterology evaluation. 4. Acute kidney injury. -Unknown baseline creatinine. -Monitor BUN and creatinine closely. -Use nephrotoxic drugs with caution. 5. Normocytic, normochromic anemia. -Most probably anemia chronic disease -Monitor H&H closely. 6. Fluids, electrolytes, and nutrition. -Regular diet. 7. DVT prophylaxis. -Subcutaneous Lovenox (renal dose). 8. Plan. -Continue current management. -Await pathology results from paracentesis. -Await gastroenterology evaluation. The patient was seen in collaboration with Dr. Martin. Result Diagram: 11/22/18 0421 11/22/18 0421 Results 24hrs Laboratory Tests Test 11/23/18 09:16 Carcinoembryonic Antigen 1.0 CA 19-9 Antigen 14.5 CA 125 Antigen 19.7 Exam/Review of Systems Exam Vitals Vital Signs Date Temp Pulse Resp B/P (MAP) Pulse Ox O2 O2 Flow FiO2 Time Delivery Rate 11/23/18 98.6 82 18 108/58 95 07:18 (75) 11/21/18 Room Air 03:42 Intake and Output 11/22/18 11/22/18 11/23/18 1515:00 23:00 07:00 IntakeIntake Total 50 ml 450 ml 50 ml BalanceBalance 50 ml 450 ml 50 ml Results Results 24hrs Laboratory Tests Test 11/23/18 09:16 Carcinoembryonic Antigen 1.0 CA 19-9 Antigen 14.5 CA 125 Antigen 19.7 Medications Medication Current Medications IV Flush (NS 3 ml) 3 ml PER PROTOCOL IV Last administered on 11/21/18at 05:24; Admin Dose 3 ML; Start 11/21/18 at 04:30 Ondansetron HCl (Zofran Inj) 4 mg Q6H PRN IV NAUSEA/VOMITING Last administered on 11/21/18at 14:23; Admin Dose 4 MG; Start 11/21/18 at 04:30 Acetaminophen (Tylenol Tab) 650 mg Q6H PRN PO .PAIN 1-3 OR TEMP; Start 11/21/18 at 04:30 Albuterol/ Ipratropium (Duoneb) 3 ml Q2H RESP THERAPY PRN HHN SHORTNESS OF BR EATH; Start 11/21/18 at 04:30 Enoxaparin Sodium (Lovenox) 40 mg DAILY SC Last administered on 11/23/18at 09:26; Admin Dose 40 MG; Start 11/23/18 at 09:00 Famotidine (Pepcid) 20 mg DAILY PO Last administered on 11/23/18at 09:25; Admin Dose 20 MG; Start 11/22/18 at 09:00 Morphine Sulfate (morphine) 2 mg Q2H PRN IV SEVERE PAIN LEVEL 7-10; Start 11/21/18 at 12:30 CAMERON CHOWDHURY NP Nov 23, 2018 11:53
[2018-11-23] MEDS ORDERED: BISACODYL (EC) 5 MG TAB PO PRN (13:00)
--- NOTE | 2018-11-23 13:05 | RADRPT ---
Echocardiogram Report Patient Name: LISANDRA LAGUNAPatient ID: [id number] : 1955 (63y 8m)Study Date: 11/21/2018 8:12:51 AM Gender: FAccession #: [id number] [place] [facility] [place] Ref[place]Physician: ANKIT DONG Height(Cm): 168 BSA: 1.62Weight(Kg): 56.2 Quality: GoodAccount #: Procedures: Echocardiographic Report: Transthoracic echocardiogram with complete 2D, M-Mode, and Doppler examination. Indications: Volume overload. Measurements: 2D/M Mode Doppler Measurement Value Normal Range Measurement Value Normal Range LVIDd 2D 2.9 [ 3.8 - 5.2 ] cm AV Peak Rogerio 1.6 [ 100.0 - 170.0 ] cm/se c LVIDs 2D 1.6 [ 2.2 - 3.5 ] cm AV Peak PG 10.0 [ 2.0 - 9.0 ] mmHg LVPWd 2D 1.3 [ 0.6 - 0.9 ] cm LVOT Peak Rogerio 2.0 [ 70.0 - 110.0 ] cm/sec IVSd 2D 1.3 [ 0.6 - 0.9 ] cm LVOT Peak PG 16.0 [ 2.0 - 6.0 ] mmHg AoR Diam 2D 3.4 [ 2.3 - 3.1 ] cm MV E Peak Rogerio 0.6 [ 60.0 - 130.0 ] cm/sec EDV 2D 31.7 [ 46.0 - 106.0 ] ml MV A Peak Rogerio 1.0 [ 100.0 - 120.0 ] cm/se c ESV 2D 7.4 [ 14.0 - 42.0 ] ml MV E/A 0.6 [ 0.8 - 1.5 ] ratio EF 2D 76.7 [ 54.0 - 74.0 ] percent MV PHT 74.0 [ 20.0 - 100.0 ] msec LA Dimen 2D 3.1 [ 2.7 - 3.8 ] cm MV Decel Time 254 [ 104 - 258 ] msec MV Decel Greer 2 Lat E` Rogerio 0.0 [ 10.0 - 15.0 ] cm/sec Lateral E/E` 16.4 [ 1.0 - 2.0 ] ratio Med E` Rogerio 0.0 cm/sec MV E/A 0.6 [ 0.8 - 1.5 ] ratio MVA PHT 3.0 [ 2.0 - 4.0 ] cm2 TR Peak Rogerio 2.4 [ 100.0 - 280.0 ] cm/se c TR Peak PG 23.0 mmHg RVSP 26.0 [ 10.0 - 36.0 ] mmHg RA Pressure 3.0 mmHg Findings: Left Ventricle: Hyperdynamic left ventricular systolic function. Moderate asymmetric septal hypertrophy. Reduced left ventricular cavity size. Ejection fraction is visually estimated at 70 %. Tissue Doppler/Mitral Doppler indices are consistent with impaired relaxation (Stage I diastolic dysfunction). Right Ventricle: Normal right ventricular size. Normal right ventricular systolic function. Left Atrium: The left atrium is normal in size. Right Atrium: The right atrium is normal in size. Mitral Valve: Normal appearance of the mitral valve. Mild mitral valve regurgitation. Aortic Valve: No significant aortic stenosis or insufficiency. Normal trileaflet aortic valve structure. Tricuspid Valve: Normal appearance of the tricuspid valve. Estimated peak PA systolic pressure 26 mmHg. There is mild tricuspid regurgitation. Pulmonic Valve: Normal pulmonic valve appearance. No evidence of pulmonic regurgitation. Pericardium: Normal pericardium with no significant pericardial effusion. Pleural effusion seen. Aorta: Normal aortic root. IVC: Normal size and normal respiratory collapse consistent with normal right atrial pressure. Pulmonary Artery: Normal pulmonary artery size. Conclusions: Hyperdynamic left ventricular systolic function. Moderate asymmetric septal hypertrophy. Reduced left ventricular cavity size. Ejection fraction is visually estimated at 70 %. Tissue Doppler/Mitral Doppler indices are consistent with impaired relaxation (Stage I diastolic dysfunction). Normal right ventricular size. Normal right ventricular systolic function. The left atrium is normal in size. The right atrium is normal in size. Mild mitral valve regurgitation. No significant aortic stenosis or insufficiency. There is mild tricuspid regurgitation. Normal pericardium with no significant pericardial effusion. Pleural effusion seen. Electronically Signed By: Nelson Patino 2018-11-23 13:05:07 PDT
[2018-11-23 14:32] VITALS: BP 112/62; PULSE 84; RESP 16
[2018-11-23] MEDS ORDERED: BISACODYL (EC) 5 MG TAB PO ONE (15:30)
--- NOTE | 2018-11-23 15:39 | CONS ---
Assessment/Plan Assessment/Plan Hospital Course (Demo Recall) Summary Assessment and Plan: Assessment: Abdominal distensions 2/2 to ascites -Unclear etiology ddx cirrhosis vs peritoneal carcinomatosis -S/p paracentesis 11/21/18 with removal of 5 liters of dark red fluid-cytology is pending -WBC from paracentesis noted to be 973 with a polynuclear WBC % 10.6 Suspect for SBP Query gastric wall thickening on imaging -Ddx artifactual due to incomplete distension vs reflect gastritis vs neoplasm- EGD recommend by radiology Cholelithiasis versus sludge in the mildly distended gallbladder Normocytic anemia History of ovarian cancer- 30 years ago treated with chemotherapy Renal insufficiency HTN Plan: Await cytology from paracentesis Recommend starting ceftriaxone 1 gm daily- for suspected SBP Pt also c/o epigastric pain - given CT results will plan for EGD tomorrow- additional we will move forward with colonoscopy tomorrow to r/o GI malignancy- by Dr. Mc Endoscopy - risks/benefits/alternatives/indications of procedure and sedation/anesthesia discussed with patient who states understanding and gives informed consent to proceed. Patient seen in collaboration with Dr. Mc CC: JON CORADO ; Consultation Date/Type/Reason Admit Date/Time Nov 21, 2018 at 03:20 Date of Consultation: Nov 23, 2018 Type of Consult GI Reason for Consultation Abdominal distension Ascites Date/Time of Note DATE: 11/23/18 TIME: 14:57 Hx of Present Illness This a 63-year-old female past medical history of ovarian cancer 30 years ago status post chemotherapy, and hypertension who presented to the hospital with complaints of abdominal distention. Patient is status post paracentesis with 5 L imaging was obtained patient found that distention secondary to ascites. GI has been consulted for further evaluation. Of dark red fluid removed fluid for WBC noted to be 973 with a polynuclear WBC percentage of 10 therefore suspect for SBP we will start her on Rocephin 1 g q24 hours. Additionally imaging was obtained and shows gastric wall thickening which may be secondary to artifact due to incomplete distention versus gastritis versus neoplasm EGD has been recommended. There is also extensive left upper quadrant mesenteric, omental stranding and nodularity which may reflect pathologic lymphadenopathy or peritoneal carcinomatosis currently cytology from paracentesis is pending. We w ill plan for EGD colonoscopy tomorrow I reviewed risk/benefits of sedation and procedure with patient who verbalized understanding and is agreeable to both procedures. Review of Systems: A 12 system, review was conducted and is negative except as noted in the HPI or here. Past Medical History Medical History: other (See HPI) Home Meds Reported Medications Benazepril Hcl* (Benazepril Hcl*) 20 Mg Tablet, 20 MG PO DAILY, #30 TAB 11/21/18 Medications Current Medications IV Flush (NS 3 ml) 3 ml PER PROTOCOL IV Last administered on 11/21/18at 05:24; Admin Dose 3 ML; Start 11/21/18 at 04:30 Ondansetron HCl (Zofran Inj) 4 mg Q6H PRN IV NAUSEA/VOMITING Last administered on 11/21/18at 14:23; Admin Dose 4 MG; Start 11/21/18 at 04:30 Acetaminophen (Tylenol Tab) 650 mg Q6H PRN PO .PAIN 1-3 OR TEMP; Start 11/21/18 at 04:30 Albuterol/ Ipratropium (Duoneb) 3 ml Q2H RESP THERAPY PRN HHN SHORTNESS OF TANYA ATH; Start 11/21/18 at 04:30 Famotidine (Pepcid) 20 mg DAILY PO Last administered on 11/23/18at 09:25; Admin Dose 20 MG; Start 11/22/18 at 09:00 Morphine Sulfate (morphine) 2 mg Q2H PRN IV SEVERE PAIN LEVEL 7-10; Start 11/21/18 at 12:30 Enoxaparin Sodium (Lovenox) 30 mg DAILY SC ; Start 11/24/18 at 09:00 Polyethylene Glycol (Miralax) 17 gm BID PO ; Start 11/23/18 at 21:00 Bisacodyl (Dulcolax) 10 mg DAILY PRN PO CONSTIPATION Last administered on 11/23/18at 14:31; Admin Dose 10 MG; Start 11/23/18 at 13:00 Allergies: Coded Allergies: No Known Allergy (Unverified , 11/20/18) Past Surgical History Past Surgical Hx: other (See HPI) Social History Alcohol Use: none Smoking Status: Never smoker Drug Use: none Exam/Review of Systems Exam Vitals Vital Signs Date Temp Pulse Resp B/P (MAP) Pulse Ox O2 O2 Flow FiO2 Time Delivery Rate 11/23/18 99.0 84 16 112/62 97 14:32 (79) 3/30/19 Room Air 03:42 Intake and Output 11/22/18 11/22/18 11/23/18 1515:00 23:00 07:00 IntakeIntake Total 50 ml 450 ml 50 ml BalanceBalance 50 ml 450 ml 50 ml Exam PHYSICAL EXAMINATION: GENERAL: Well developed, well nourished, alert & oriented x 3, in no acute distress SKIN: No lesions HEAD: Normocephalic, atraumatic, no tenderness. EYES: Pupils equal reactive to light, no discharge. EARS/NOSE AND THROAT: Ears normal, nose normal, oropharynx normal. NECK: Supple, no masses CHEST: Inspection within normal limits. CARDIOVASCULAR: Heart: Regular rate and rhythm, no murmurs RESPIRATORY: Lungs clear to auscultation and percussion, no wheezing, no rubs GASTROINTESTINAL AND LIVER: Abdomen: Soft, non tenderness, distended, no hernias, no masses, no organomegaly, ascites, no guarding, no rebound tenderness, normoactive bowel sounds. Rectal: Deferred. EXTREMITIES: Results Result Diagram: 11/22/18 0421 11/22/18 0421 Results 24hrs Laboratory Tests Test 11/23/18 09:16 Carcinoembryonic Antigen 1.0 CA 19-9 Antigen 14.5 CA 125 Antigen 19.7 Medications Medication Current Medications IV Flush (NS 3 ml) 3 ml PER PROTOCOL IV Last administered on 11/21/18at 05:24; Admin Dose 3 ML; Start 11/21/18 at 04:30 Ondansetron HCl (Zofran Inj) 4 mg Q6H PRN IV NAUSEA/VOMITING Last administered on 11/21/18at 14:23; Admin Dose 4 MG; Start 11/21/18 at 04:30 Acetaminophen (Tylenol Tab) 650 mg Q6H PRN PO .PAIN 1-3 OR TEMP; Start 11/21/18 at 04:30 Albuterol/ Ipratropium (Duoneb) 3 ml Q2H RESP THERAPY PRN HHN SHORTNESS OF BREATH; Start 11/21/18 at 04:30 Famotidine (Pepcid) 20 mg DAILY PO Last administered on 11/23/18at 09:25; Admin Dose 20 MG; Start 11/22/18 at 09:00 Morphine Sulfate (morphine) 2 mg Q2H PRN IV SEVERE PAIN LEVEL 7-10; Start 11/21/18 at 12:30 Enoxaparin Sodium (Lovenox) 30 mg DAILY SC ; Start 11/24/18 at 09:00 Polyethylene Glycol (Miralax) 17 gm BID PO ; Start 11/23/18 at 21:00 Bisacodyl (Dulcolax) 10 mg DAILY PRN PO CONSTIPATION Last administered on 11/23/18at 14:31; Admin Dose 10 MG; Start 11/23/18 at 13:00 LEILANI FELTON Nov 23, 2018 15:07
[2018-11-23] MEDS: CEFTRIAXONE 1 GM/50 ML (PMX) 50 ML IVPB SCH (16:21)
[2018-11-23] MEDS ORDERED: MAGNESIUM CITRATE 300 ML BTL PO ONE (17:30)
--- NOTE | 2018-11-23 17:53 | PREAC ---
Date/Time of Note Date/Time of Note DATE: 11/23/18 TIME: 17:51 Anesthesia Eval and Record Evaluation Time Pre-Procedure Interview DATE: 11/23/18 TIME: 17:51 Age 63 Sex female NPO: 8 hrs Preoperative diagnosis bloody ascites s/p paracentesis Planned procedure EGD / Colonoscopy Past Medical History Past Medical History: Includes Cardio: HTN Endo: Other Renal: SHAHLA GI: Other (ovarian cancer ) Heme: Anemia Surgery & Anesthesia Issues No known issue Meds Anticoagulation: No Beta Víctor within 24 hr: No Reason Beta Víctor not given: Pt. not on B-Víctor Reported Medications Benazepril Hcl* (Benazepril Hcl*) 20 Mg Tablet, 20 MG PO DAILY, #30 TAB 11/21/18 Current Medications IV Flush (NS 3 ml) 3 ml PER PROTOCOL IV Last administered on 11/21/18at 05:24; Admin Dose 3 ML; Start 11/21/18 at 04:30 Ondansetron HCl (Zofran Inj) 4 mg Q6H PRN IV NAUSEA/VOMITING Last administered on 11/21/18at 14:23; Admin Dose 4 MG; Start 11/21/18 at 04:30 Acetaminophen (Tylenol Tab) 650 mg Q6H PRN PO .PAIN 1-3 OR TEMP; Start 11/21/18 at 04:30 Albuterol/ Ipratropium (Duoneb) 3 ml Q2H RESP THERAPY PRN HHN SHORTNESS OF BREATH; Start 11/21/18 at 04:30 Famotidine (Pepcid) 20 mg DAILY PO Last administered on 11/23/18at 09:25; Admin Dose 20 MG; Start 11/22/18 at 09:00 Morphine Sulfate (morphine) 2 mg Q2H PRN IV SEVERE PAIN LEVEL 7-10; Start 11/21/18 at 12:30 Enoxaparin Sodium (Lovenox) 30 mg DAILY SC ; Start 11/24/18 at 09:00 Polyethylene Glycol (Miralax) 17 gm BID PO ; Start 11/23/18 at 21:00 Bisacodyl (Dulcolax) 10 mg DAILY PRN PO CONSTIPATION Last administered on 11/23/18at 14:31; Admin Dose 10 MG; Start 11/23/18 at 13:00 Ceftriaxone Sodium 50 ml @ 100 mls/hr Q24H IVPB Last administered on 11/23/18at 16:21; Admin Dose 100 MLS/HR; Start 11/23/18 at 15:30 Polyethylene Glycol (Miralax) 119 gm ONCE ONCE PO ; Start 11/23/18 at 18:30; Stop 11/23/18 at 18:31 Polyethylene Glycol (Miralax) 119 gm 2ND DOSE (GI PREP) ONCE PO ; Start 11/24/18 at 06:00; Stop 11/24/18 at 06:01 Bisacodyl (Dulcolax) 10 mg 2ND DOSE (GI PREP) ONCE PO ; Start 11/24/18 at 08:00; Stop 11/24/18 at 08:01 Meds reviewed: Yes Allergies Coded Allergies: No Known Allergy (Unverified , 11/20/18) Allergies Reviewed: Yes Labs/Studies Labs Reviewed: Reviewed by anesthesiologist Result Diagram: 11/22/1842011/22/18420 test: N/A Studies: CXR (The cardiac silhouette is within normal limits. The aortic arch is calcified. There is mild bibasilar atelectasis. There is no focal consolidation, vascular congestion or pleural effusion. ), 2D Echo (EF 70%) Pre-procedure Exam Last vitals Vital Signs Date Temp Pulse Resp B/P (MAP) Pulse Ox O2 O2 Flow FiO2 Time Delivery Rate 11/23/18 98.6 17:30 11/23/18 84 16 112/62 97 14:32 (79) 11/21/18 Room Air 03:42 Airway: Adequate mouth opening Mallampati: Mallampati II Teeth: Normal Lung: Normal Heart: Normal ASA Physical Status ASA physical status: 2 Emergency: None Planned Anesthetic General/MAC: MAC Pre-operative Attestations Prior to commencing anesthesia and surgery, the patient was re-evaluated, there was verification of: *The patient's identity *The results of appropriate recent lab work and preoperative vital signs *The above evaluation not changing prior to induction *Anesthetic plan, risk benefits, alternative and complications discussed with patient/family; questions answered; patient/family understands, accepts and wishes to proceed. KRISTOFER ANAYA Nov 23, 2018 17:53
[2018-11-23] MEDS ORDERED: POLYETHYLENE GLYCOL 3350 119 GM POWDER PO ONE (18:30)
[2018-11-23 19:55] VITALS: BP 134/60; PULSE 92; RESP 18
[2018-11-23] MEDS: POLYETHYLENE GLYCOL 17 GM PACKET PO SCH (21:23)
[2018-11-24] VITALS (11 sets, daily range): BP systolic 106–132; BP diastolic 51–75; PULSE 65–85; RESP 16–23
[2018-11-24] MEDS ORDERED: POLYETHYLENE GLYCOL 3350 119 GM POWDER PO ONE (06:00)
[2018-11-24] MEDS ORDERED: BISACODYL (EC) 5 MG TAB PO ONE (08:00)
[2018-11-24] MEDS: FAMOTIDINE 20 MG TAB PO SCH (08:10)
[2018-11-24] MEDS: POLYETHYLENE GLYCOL 17 GM PACKET PO SCH ×2 (09:00→21:00)
--- NOTE | 2018-11-24 09:24 | PN ---
Date/Time of Note Date/Time of Note DATE: 11/24/18 TIME: 09:23 Assessment/Plan VTE Prophylaxis Risk score (from Ns)>0 risk: 4 SCD applied (from Ns): Yes Pharmacological prophylaxis: LMWH Lines/Catheters IV [facility]ter [facility] (from [facility]): Saline Lock Assessment/Plan Hospital Course SUBJECTIVE: Denies any abdominal pain. OBJECTIVE: Physical Exam General: Adequately build 63 year-old female lying in bed in no apparent distress. HEENT: Normocephalic, atraumatic. Eyes: Anicteric sclerae, conjunctivae clear. ENT: Nasal septum midline, oral mucosa moist. Neck supple. Respiratory: Bilaterally clear breath sounds. No use of accessory muscles of respiration. No adventitious breath sounds. Cardiovascular: S1, S2 heard. Regular rate and rhythm. Abdomen: Soft and non-distended. Bowel sounds positive in all 4 quadrants. Genitourinary: Deferred. Extremities: No cyanosis, no clubbing, no edema. Peripheral pulses palpable. Neurologic: Cranial nerves II through XII grossly intact. The patient is awake, alert, and oriented. Skin: Normal skin turgor. No skin rashes. Labs & Vitals per chart ASSESSMENT & PLAN 63-year-old female with remote history of ovarian cancer, who presented to the emergency room with chief complaint of abdominal distention. The patient underwent an ultrasound-guided paracentesis with removal of 5000 cc of dark red fluid. CT scan of the abdomen and pelvis was showing extensive left upper quadrant mesenteric/omental stranding and nodularity which may reflect pathology of lymphadenopathy or peritoneal carcinomatosis. The patient was admitted to inpatient setting for further treatment and evaluation. 1. New onset ascites. -Status post paracentesis with drainage of 5 L of dark red fluid. -Pathology pending. -Being followed by oncology. -Started on ceftriaxone for possible SBP. 2. History of ovarian cancer. -Being followed by oncology. 3. 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 -Being followed by oncology. -Plan for esophagogastroduodenoscopy today. 4. Acute kidney injury. -Unknown baseline creatinine. -Monitor BUN and creatinine closely. -Use nephrotoxic drugs with caution. 5. Normocytic, normochromic anemia. -Most probably anemia chronic disease -Monitor H&H closely. 6. Fluids, electrolytes, and nutrition. -Regular diet. 7. DVT prophylaxis. -Subcutaneous Lovenox (renal dose). 8. Plan. -Continue current management. -Await pathology results from paracentesis. -Await esophagogastroduodenoscopy and colonoscopy. The patient was seen in collaboration with Dr. Martin. Result Diagram: 11/24/18 0416 11/24/18 0416 Results 24hrs Laboratory Tests Test 11/24/18 04:16 White Blood Count 3.6 #L Red Blood Count 2.83 L Hemoglobin 8.7 L Hematocrit 26.8 L Mean Corpuscular Volume 94.7 Mean Corpuscular Hemoglobin 30.7 Mean Corpuscular Hemoglobin Concent 32.5 Red Cell Distribution Width 14.4 Platelet Count 295 Mean Platelet Volume 9.2 Immature Granulocytes % 0.300 Neutrophils % 52.7 Lymphocytes % 30.2 Monocytes % 9.4 Eosinophils % 6.6 Basophils % 0.8 Nucleated Red Blood Cells % 0.0 Immature Granulocytes # 0.010 Neutrophils # 1.9 Lymphocytes # 1.1 Monocytes # 0.3 Eosinophils # 0.2 Basophils # 0.0 Nucleated Red Blood Cells # 0.0 Sodium Level 136 Potassium Level 3.6 Chloride Level 103 Carbon Dioxide Level 25 Anion Gap 8 Blood Urea Nitrogen 17 Creatinine 1.22 H Est Glomerular Filtrat Rate mL/min 45 L Glucose Level 83 Calcium Level 8.8 Phosphorus Level 4.3 Magnesium Level 2.2 Exam/Review of Systems Exam Vitals Vital Signs Date Temp Pulse Resp B/P (MAP) Pulse Ox O2 O2 Flow FiO2 Time Delivery Rate 11/24/18 97.9 72 18 121/64 99 Room Air 07:27 (83) Intake and Output 11/23/18 11/23/18 11/24/18 1515:00 23:00 07:00 IntakeIntake Total 50 ml BalanceBalance 50 ml Results Results 24hrs Laboratory Tests Test 11/24/18 04:16 White Blood Count 3.6 #L Red Blood Count 2.83 L Hemoglobin 8.7 L Hematocrit 26.8 L Mean Corpuscular Volume 94.7 Mean Corpuscular Hemoglobin 30.7 Mean Corpuscular Hemoglobin Concent 32.5 Red Cell Distribution Width 14.4 Platelet Count 295 Mean Platelet Volume 9.2 Immature Granulocytes % 0.300 Neutrophils % 52.7 Lymphocytes % 30.2 Monocytes % 9.4 Eosinophils % 6.6 Basophils % 0.8 Nucleated Red Blood Cells % 0.0 Immature Granulocytes # 0.010 Neutrophils # 1.9 Lymphocytes # 1.1 Monocytes # 0.3 Eosinophils # 0.2 Basophils # 0.0 Nucleated Red Blood Cells # 0.0 Sodium Level 136 Potassium Level 3.6 Chloride Level 103 Carbon Dioxide Level 25 Anion Gap 8 Blood Urea Nitrogen 17 Creatinine 1.22 H Est Glomerular Filtrat Rate mL/min 45 L Glucose Level 83 Calcium Level 8.8 Phosphorus Level 4.3 Magnesium Level 2.2 Medications Medication Current Medications IV Flush (NS 3 ml) 3 ml PER PROTOCOL IV Last administered on 11/21/18 05:24; Admin Dose 3 ML; Start 11/21/18 at 04:30 Ondansetron HCl (Zofran Inj) 4 mg Q6H PRN IV NAUSEA/VOMITING Last administered on 11/21/18 14:23; Admin Dose 4 MG; Start 11/21/18 at 04:30 Acetaminophen (Tylenol Tab) 650 mg Q6H PRN PO .PAIN 1-3 OR TEMP; Start 11/21/18 at 04:30 Albuterol/ Ipratropium (Duoneb) 3 ml Q2H RESP THERAPY PRN HHN SHORTNESS OF BREATH; Start 11/21/18 at 04:30 Famotidine (Pepcid) 20 mg DAILY PO Last administered on 11/23/18 09:25; Admin Dose 20 MG; Start 11/22/18 at 09:00 Morphine Sulfate (morphine) 2 mg Q2H PRN IV SEVERE PAIN LEVEL 7-10; Start 11/21/18 at 12:30 Enoxaparin Sodium (Lovenox) 30 mg DAILY SC ; Start 11/24/18 at 09:00 Polyethylene Glycol (Miralax) 17 gm BID PO Last administered on 11/23/18 21:23; Admin Dose 17 GM; Start 11/23/18 at 21:00 Bisacodyl (Dulcolax) 10 mg DAILY PRN PO CONSTIPATION Last administered on 11/23/18 14:31; Admin Dose 10 MG; Start 11/23/18 at 13:00 Ceftriaxone Sodium 50 ml @ 100 mls/hr Q24H IVPB Last administered on 11/23/18 16:21; Admin Dose 100 MLS/HR; Start 11/23/18 at 15:30 CAMERON CHOWDHURY NP Nov 24, 2018 09:24
--- NOTE | 2018-11-24 13:03 | CONS ---
Assessment/Plan Assessment/Plan Hospital Course (Demo Recall) #h/o ovarian cancer #bloody ascites s/p paracentesis #Gastric wall thickening on CT scan -will follow up cytologic path from paracentesis -tumor markers ordered. Thus far CEA, CA 19-9 and CA 125 are wnl -pt will need EGD/ colonoscopy to rule out underlying GI malignancy. ordered for today -will follow up once above tests have resulted Thank you for the opportunity to participate in this patients care A total of 40 minutes of face to face time was spent speaking with the patient, of which greater than 50% was spent in counseling and coordination of care and the detailed question and answer session. Consultation Date/Type/Reason Admit Date/Time Nov 21, 2018 at 03:20 Initial Consult Date 11/23/18 Type of Consult oncology Reason for Consultation concern for recurrent cancer Requesting Provider: ORACIO IGNACIO MD Date/Time of Note DATE: 11/24/18 TIME: 13:01 24 HR Interval Summary Free Text/Dictation feels well , no pain Exam/Review of Systems Exam Vitals Vital Signs Date Temp Pulse Resp B/P (MAP) Pulse Ox O2 O2 Flow FiO2 Time Delivery Rate 11/24/18 97.9 72 18 121/64 99 Room Air 07:27 (83) Intake and Output 11/23/18 11/23/18 11/24/18 1515:00 23:00 07:00 IntakeIntake Total 50 ml BalanceBalance 50 ml Constitutional: alert, oriented Psych: no complaints Head: normocephalic Eyes: nl conjunctiva ENMT: nl external ears & nose Neck: supple Respiratory: clear to auscultation Cardiovascular: regular rate and rhythm Gastrointestinal: soft Musculoskeletal: nl extremities to inspection Results Result Diagram: 11/24/18 0416 11/24/18 0416 Results 24hrs Laboratory Tests Test 11/24/18 04:16 White Blood Count 3.6 #L Red Blood Count 2.83 L Hemoglobin 8.7 L Hematocrit 26.8 L Mean Corpuscular Volume 94.7 Mean Corpuscular Hemoglobin 30.7 Mean Corpuscular Hemoglobin Concent 32.5 Red Cell Distribution Width 14.4 Platelet Count 295 Mean Platelet Volume 9.2 Immature Granulocytes % 0.300 Neutrophils % 52.7 Lymphocytes % 30.2 Monocytes % 9.4 Eosinophils % 6.6 Basophils % 0.8 Nucleated Red Blood Cells % 0.0 Immature Granulocytes # 0.010 Neutrophils # 1.9 Lymphocytes # 1.1 Monocytes # 0.3 Eosinophils # 0.2 Basophils # 0.0 Nucleated Red Blood Cells # 0.0 Sodium Level 136 Potassium Level 3.6 Chloride Level 103 Carbon Dioxide Level 25 Anion Gap 8 Blood Urea Nitrogen 17 Creatinine 1.22 H Est Glomerular Filtrat Rate mL/min 45 L Glucose Level 83 Calcium Level 8.8 Phosphorus Level 4.3 Magnesium Level 2.2 Medications Medication Current Medications IV Flush (NS 3 ml) 3 ml PER PROTOCOL IV Last administered on 11/21/18 05:24; Admin Dose 3 ML; Start 11/21/18 at 04:30 Ondansetron HCl (Zofran Inj) 4 mg Q6H PRN IV NAUSEA/VOMITING Last administered on 11/21/18at 14:23; Admin Dose 4 MG; Start 11/21/18 at 04:30 Acetaminophen (Tylenol Tab) 650 mg Q6H PRN PO .PAIN 1-3 OR TEMP; Start 11/21/18 at 04:30 Albuterol/ Ipratropium (Duoneb) 3 ml Q2H RESP THERAPY PRN HHN SHORTNESS OF BREATH; Start 11/21/18 at 04:30 Famotidine (Pepcid) 20 mg DAILY PO Last administered on 11/23/18at 09:25; Admin Dose 20 MG; Start 11/22/18 at 09:00 Morphine Sulfate (morphine) 2 mg Q2H PRN IV SEVERE PAIN LEVEL 7-10; Start 11/21/18 at 12:30 Enoxaparin Sodium (Lovenox) 30 mg DAILY SC ; Start 11/24/18 at 09:00 Polyethylene Glycol (Miralax) 17 gm BID PO Last administered on 11/23/18at 21:23; Admin Dose 17 GM; Start 11/23/18 at 21:00 Bisacodyl (Dulcolax) 10 mg DAILY PRN PO CONSTIPATION Last administered on 11/23/18 14:31; Admin Dose 10 MG; Start 11/23/18 at 13:00 Ceftriaxone Sodium 50 ml @ 100 mls/hr Q24H IVPB Last administered on 11/23/18at 16:21; Admin Dose 100 MLS/HR; Start 11/23/18 at 15:30 LIZ SILVEIRA M.D. Nov 24, 2018 13:03
[2018-11-24] MEDS ORDERED: ONDANSETRON 4 MG INJ IV PRN (15:00)
[2018-11-24] MEDS ORDERED: PROPOFOL 20 ML ONE (15:02)
[2018-11-24] MEDS ORDERED: FENTAnyl 50 MCG/ML VIAL ONE (15:02)
--- NOTE | 2018-11-24 16:37 | HPN ---
Date/Time of Note Date/Time of Note DATE: 11/24/18 Interval H&P Admission Note Pt. seen H&P reviewed: No system changes TYREE MEDINA MD Nov 24, 2018 16:37
[2018-11-24] MEDS: CEFTRIAXONE 1 GM/50 ML (PMX) 50 ML IVPB SCH (17:19)
[2018-11-24] MEDS: ENOXAPARIN 30 MG/0.3 ML SYG SC SCH (17:25)
[2018-11-25 00:14] VITALS: BP 104/52; PULSE 71; RESP 17
[2018-11-25 07:14] VITALS: BP 106/57; PULSE 71; RESP 18
--- NOTE | 2018-11-25 09:20 | PN ---
Date/Time of Note Date/Time of Note DATE: 11/25/18 TIME: Assessment/Plan VTE Prophylaxis Risk score (from Nsg)>0 risk: 4 SCD applied (from Nsg): Yes Pharmacological prophylaxis: LMWH Lines/Catheters IV [facility] (from [facility]): Peripheral IV Assessment/Plan Hospital Course SUBJECTIVE: Denies any abdominal pain. OBJECTIVE: Physical Exam General: Adequately build 63 year-old female lying in bed in no apparent distress. HEENT: Normocephalic, atraumatic. Eyes: Anicteric sclerae, conjunctivae clear. ENT: Nasal septum midline, oral mucosa moist. Neck supple. Respiratory: Bilaterally clear breath sounds. No use of accessory muscles of respiration. No adventitious breath sounds. Cardiovascular: S1, S2 heard. Regular rate and rhythm. Abdomen: Soft and non-distended. Bowel sounds positive in all 4 quadrants. Genitourinary: Deferred. Extremities: No cyanosis, no clubbing, no edema. Peripheral pulses palpable. Neurologic: Cranial nerves II through XII grossly intact. The patient is awake, alert, and oriented. Skin: Normal skin turgor. No skin rashes. Labs & Vitals per chart ASSESSMENT & PLAN 63-year-old female with remote history of ovarian cancer, who presented to the emergency room with chief complaint of abdominal distention. The patient underwent an ultrasound-guided paracentesis with removal of 5000 cc of dark red fluid. CT scan of the abdomen and pelvis was showing extensive left upper quadrant mesenteric/omental stranding and nodularity which may reflect pathology of lymphadenopathy or peritoneal carcinomatosis. The patient was admitted to inpatient setting for further treatment and evaluation. 1. New onset ascites. -Status post paracentesis with drainage of 5 L of dark red fluid. -Pathology pending. -Being followed by oncology. -Started on ceftriaxone for possible SBP. 2. History of ovarian cancer. -Being followed by oncology. 3. 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 -Being followed by oncology. -Status post colonoscopy on 11/24/2018 that showed a 4 mm sessile polyp and moderate sized internal hemorrhoids. -Status post esophagogastroduodenoscopy on 11/24/2018 that showed moderate distal esophagitis and atypical gastric ulceration and infiltration of the body of the stomach. Biopsy results pending. 4. Acute kidney injury. -Unknown baseline creatinine. -Monitor BUN and creatinine closely. -Use nephrotoxic drugs with caution. 5. Normocytic, normochromic anemia. -Most probably anemia chronic disease -Monitor H&H closely. 6. Fluids, electrolytes, and nutrition. -Regular diet. 7. DVT prophylaxis. -Subcutaneous Lovenox (renal dose). 8. Plan. -Continue current management. -Await pathology results from paracentesis and esophagogastroduodenoscopy. The patient was seen in collaboration with Dr. Martin. Result Diagram: 11/25/18 0418 11/25/18 0418 Results 24hrs Laboratory Tests Test 11/25/18 04:18 White Blood Count 3.7 L Red Blood Count 3.00 L Hemoglobin 9.1 L Hematocrit 28.6 L Mean Corpuscular Volume 95.3 Mean Corpuscular Hemoglobin 30.3 Mean Corpuscular Hemoglobin Concent 31.8 L Red Cell Distribution Width 14.5 Platelet Count 317 Mean Platelet Volume 9.2 Immature Granulocytes % 0.300 Neutrophils % 58.3 Lymphocytes % 27.4 Monocytes % 8.3 Eosinophils % 4.6 Basophils % 1.1 Nucleated Red Blood Cells % 0.0 Immature Granulocytes # 0.010 Neutrophils # 2.2 Lymphocytes # 1.0 Monocytes # 0.3 Eosinophils # 0.2 Basophils # 0.0 Nucleated Red Blood Cells # 0.0 Sodium Level 139 Potassium Level 4.5 Chloride Level 104 Carbon Dioxide Level 27 Anion Gap 8 Blood Urea Nitrogen 23 H Creatinine 1.41 H Est Glomerular Filtrat Rate mL/min 38 L Glucose Level 72 Calcium Level 9.1 Phosphorus Level 5.3 H Magnesium Level 2.1 Exam/Review of Systems Exam Vitals Vital Signs Date Temp Pulse Resp B/P (MAP) Pulse Ox O2 O2 Flow FiO2 Time Delivery Rate 11/25/18 99.5 71 18 106/57 95 07:14 (73) 11/24/18 Room Air 16:16 Intake and Output 11/24/18 11/24/18 11/25/18 1515:00 23:00 07:00 IntakeIntake Total 250 ml 200 ml BalanceBalance 250 ml 200 ml Results Results 24hrs Laboratory Tests Test 11/25/18 04:18 White Blood Count 3.7 L Red Blood Count 3.00 L Hemoglobin 9.1 L Hematocrit 28.6 L Mean Corpuscular Volume 95.3 Mean Corpuscular Hemoglobin 30.3 Mean Corpuscular Hemoglobin Concent 31.8 L Red Cell Distribution Width 14.5 Platelet Count 317 Mean Platelet Volume 9.2 Immature Granulocytes % 0.300 Neutrophils % 58.3 Lymphocytes % 27.4 Monocytes % 8.3 Eosinophils % 4.6 Basophils % 1.1 Nucleated Red Blood Cells % 0.0 Immature Granulocytes # 0.010 Neutrophils # 2.2 Lymphocytes # 1.0 Monocytes # 0.3 Eosinophils # 0.2 Basophils # 0.0 Nucleated Red Blood Cells # 0.0 Sodium Level 139 Potassium Level 4.5 Chloride Level 104 Carbon Dioxide Level 27 Anion Gap 8 Blood Urea Nitrogen 23 H Creatinine 1.41 H Est Glomerular Filtrat Rate mL/min 38 L Glucose Level 72 Calcium Level 9.1 Phosphorus Level 5.3 H Magnesium Level 2.1 Medications Medication Current Medications IV Flush (NS 3 ml) 3 ml PER PROTOCOL IV Last administered on 11/21/18 05:24; Admin Dose 3 ML; Start 11/21/18 at 04:30 Ondansetron HCl (Zofran Inj) 4 mg Q6H PRN IV NAUSEA/VOMITING Last administered on 11/21/18 14:23; Admin Dose 4 MG; Start 11/21/18 at 04:30 Acetaminophen (Tylenol Tab) 650 mg Q6H PRN PO .PAIN 1-3 OR TEMP; Start 11/21/18 at 04:30 Albuterol/ Ipratropium (Duoneb) 3 ml Q2H RESP THERAPY PRN HHN SHORTNESS OF BREATH; Start 11/21/18 at 04:30 Famotidine (Pepcid) 20 mg DAILY PO Last administered on 11/23/18 09:25; Admin Dose 20 MG; Start 11/22/18 at 09:00 Morphine Sulfate (morphine) 2 mg Q2H PRN IV SEVERE PAIN LEVEL 7-10; Start 11/21/18 at 12:30 Enoxaparin Sodium (Lovenox) 30 mg DAILY SC Last administered on 11/24/18 17:25; Admin Dose 30 MG; Start 11/24/18 at 09:00 Polyethylene Glycol (Miralax) 17 gm BID PO Last administered on 11/23/18 21:23; Admin Dose 17 GM; Start 11/23/18 at 21:00 Bisacodyl (Dulcolax) 10 mg DAILY PRN PO CONSTIPATION Last administered on 4/1/19at 14:31; Admin Dose 10 MG; Start 11/23/18 at 13:00 Ceftriaxone Sodium 50 ml @ 100 mls/hr Q24H IVPB Last administered on 11/24/18at 17:19; Admin Dose 100 MLS/HR; Start 11/23/18 at 15:30 CAMERON CHOWDHURY [employer] Nov 25, 2018 09:20
[2018-11-25] MEDS: POLYETHYLENE GLYCOL 17 GM PACKET PO SCH ×2 (09:45→22:40)
[2018-11-25] MEDS: FAMOTIDINE 20 MG TAB PO SCH (09:45)
[2018-11-25] MEDS: ENOXAPARIN 30 MG/0.3 ML SYG SC SCH (09:47)
[2018-11-25 13:11] VITALS: BP 116/55; PULSE 80; RESP 18
--- NOTE | 2018-11-25 13:16 | PN ---
Date/Time of Note Date/Time of Note DATE: 11/25/18 TIME: 13:01 Assessment/Plan VTE Prophylaxis Risk score (from Ns)>0 risk: 5 SCD applied (from Ns): Yes Pharmacological prophylaxis: NA/contraindicated Pharm contraindication: low risk/ambulating Lines/Catheters [facility] Saline Lock Urinary Cath still in place: No Assessment/Plan Hospital Course Summary Assessment and Plan: Assessment: Abdominal distensions / to ascites -Unclear etiology ddx cirrhosis vs peritoneal carcinomatosis -S/p paracentesis 11/21/18 with removal of 5 liters of dark red fluid- Abd fluids with Malignant cells present -WBC from paracentesis noted to be 973 with a polynuclear WBC % 10.6 Suspect for SBP Query gastric wall thickening on imaging -Ddx artifactual due to incomplete distension vs reflect gastritis vs neoplasm- EGD recommend by radiology EGD 11/24/18 Moderate distal esophagitis Atypical Gastric ulceration and infiltration of the body of the stomach, bx obtained. Rule out cancer Atrophic antrum Cholelithiasis versus sludge in the mildly distended gallbladder Normocytic anemia Colonoscopy 11/24/18 4 mm sessile polyp proximal ascending colon, ablated Moderate-sized internal hemorrhoids Otherwise normal colonoscopy History of ovarian cancer- 30 years ago treated with chemotherapy Renal insufficiency HTN Plan: Await bx results Continue current regimen Onc following- f/u recs regarding Abd fluids with Malignant cells present Patient seen in collaboration with Dr. Mc Subjective: Course reviewed with nursing staff Patient interviewed and examined All labs, imaging and other results reviewed The patient sitting up in bed, no c/o abd pain ,nausea or vomiting, tolerating diet well. Discussed EGD/colonoscopy results, bx currently pending. PHYSICAL EXAMINATION: GENERAL: Well developed, well nourished, alert & oriented x 3, in no acute distress SKIN: No lesions HEAD: Normocephalic, atraumatic, no tenderness. EYES: Pupils equal reactive to light, no discharge. EARS/NOSE AND THROAT: Ears normal, nose normal, oropharynx normal. NECK: Supple, no masses CHEST: Inspection within normal limits. CARDIOVASCULAR: Heart: Regular rate and rhythm, no murmurs RESPIRATORY: Lungs clear to auscultation and percussion, no wheezing, no rubs GASTROINTESTINAL AND LIVER: Abdomen: Soft, non tenderness, distended, no hernias, no masses, no organomegaly, ascites, no guarding, no rebound tenderness, normoactive bowel sounds. Rectal: Deferred. EXTREMITIES: Result Diagram: 11/25/18 0418 11/25/18 0418 Results 24hrs Laboratory Tests Test 11/25/18 04:18 White Blood Count 3.7 L Red Blood Count 3.00 L Hemoglobin 9.1 L Hematocrit 28.6 L Mean Corpuscular Volume 95.3 Mean Corpuscular Hemoglobin 30.3 Mean Corpuscular Hemoglobin Concent 31.8 L Red Cell Distribution Width 14.5 Platelet Count 317 Mean Platelet Volume 9.2 Immature Granulocytes % 0.300 Neutrophils % 58.3 Lymphocytes % 27.4 Monocytes % 8.3 Eosinophils % 4.6 Basophils % 1.1 Nucleated Red Blood Cells % 0.0 Immature Granulocytes # 0.010 Neutrophils # 2.2 Lymphocytes # 1.0 Monocytes # 0.3 Eosinophils # 0.2 Basophils # 0.0 Nucleated Red Blood Cells # 0.0 Sodium Level 139 Potassium Level 4.5 Chloride Level 104 Carbon Dioxide Level 27 Anion Gap 8 Blood Urea Nitrogen 23 H Creatinine 1.41 H Est Glomerular Filtrat Rate mL/min 38 L Glucose Level 72 Calcium Level 9.1 Phosphorus Level 5.3 H Magnesium Level 2.1 Exam/Review of Systems Exam Vitals Vital Signs Date Temp Pulse Resp B/P (MAP) Pulse Ox O2 O2 Flow FiO2 Time Delivery Rate 11/25/18 99.5 71 18 106/57 95 07:14 (73) 11/24/18 Room Air 16:16 Intake and Output 11/24/18 11/24/18 11/25/18 1515:00 23:00 07:00 IntakeIntake Total 250 ml 200 ml BalanceBalance 250 ml 200 ml Results Results 24hrs Laboratory Tests Test 11/25/18 04:18 White Blood Count 3.7 L Red Blood Count 3.00 L Hemoglobin 9.1 L Hematocrit 28.6 L Mean Corpuscular Volume 95.3 Mean Corpuscular Hemoglobin 30.3 Mean Corpuscular Hemoglobin Concent 31.8 L Red Cell Distribution Width 14.5 Platelet Count 317 Mean Platelet Volume 9.2 Immature Granulocytes % 0.300 Neutrophils % 58.3 Lymphocytes % 27.4 Monocytes % 8.3 Eosinophils % 4.6 Basophils % 1.1 Nucleated Red Blood Cells % 0.0 Immature Granulocytes # 0.010 Neutrophils # 2.2 Lymphocytes # 1.0 Monocytes # 0.3 Eosinophils # 0.2 Basophils # 0.0 Nucleated Red Blood Cells # 0.0 Sodium Level 139 Potassium Level 4.5 Chloride Level 104 Carbon Dioxide Level 27 Anion Gap 8 Blood Urea Nitrogen 23 H Creatinine 1.41 H Est Glomerular Filtrat Rate mL/min 38 L Glucose Level 72 Calcium Level 9.1 Phosphorus Level 5.3 H Magnesium Level 2.1 Medications Medication Current Medications IV Flush (NS 3 ml) 3 ml PER PROTOCOL IV Last administered on 11/21/18 05:24; Admin Dose 3 ML; Start 11/21/18 at 04:30 Ondansetron HCl (Zofran Inj) 4 mg Q6H PRN IV NAUSEA/VOMITING Last administered on 11/21/18 14:23; Admin Dose 4 MG; Start 11/21/18 at 04:30 Acetaminophen (Tylenol Tab) 650 mg Q6H PRN PO .PAIN 1-3 OR TEMP; Start 11/21/18 at 04:30 Albuterol/ Ipratropium (Duoneb) 3 ml Q2H RESP THERAPY PRN HHN SHORTNESS OF BREATH; Start 11/21/18 at 04:30 Famotidine (Pepcid) 20 mg DAILY PO Last administered on 11/25/18 09:45; Admin Dose 20 MG; Start 11/22/18 at 09:00 Morphine Sulfate (morphine) 2 mg Q2H PRN IV SEVERE PAIN LEVEL 7-10; Start 11/21/18 at 12:30 Enoxaparin Sodium (Lovenox) 30 mg DAILY SC Last administered on 11/25/18 09:47; Admin Dose 30 MG; Start 11/24/18 at 09:00 Polyethylene Glycol (Miralax) 17 gm BID PO Last administered on 11/25/18 09:45; Admin Dose 17 GM; Start 11/23/18 at 21:00 Bisacodyl (Dulcolax) 10 mg DAILY PRN PO CONSTIPATION Last administered on 11/23/18 14:31; Admin Dose 10 MG; Start 11/23/18 at 13:00 Ceftriaxone Sodium 50 ml @ 100 mls/hr Q24H IVPB Last administered on 11/24/18 17:19; Admin Dose 100 MLS/HR; Start 11/23/18 at 15:30 LEILANI FELTON Nov 25, 2018 13:12
--- NOTE | 2018-11-25 14:10 | CONS ---
Assessment/Plan Assessment/Plan Hospital Course (Demo Recall) #h/o ovarian cancer #bloody ascites s/p paracentesis #Gastric wall thickening on CT scan -EGD demonstrated tumor infiltration. path pending but high suspicion for gastric cancer -cytology cells are malignant and also high likelihood for gastric cancer -tumor markers ordered. Thus far CEA, CA 19-9 and CA 125 are wnl -will order MSI, PD-L1 and Her 2 on tumor cells -pt will need to start systemic chemotherapy -will discuss results in AM Thank you for the opportunity to participate in this patients care A total of 40 minutes of face to face time was spent speaking with the patient, of which greater than 50% was spent in counseling and coordination of care and the detailed question and answer session. Consultation Date/Type/Reason Admit Date/Time Nov 21, 2018 at 03:20 Initial Consult Date 11/23/18 Type of Consult oncology Reason for Consultation unknown primary Requesting Provider: ORACIO IGNACIO MD Date/Time of Note DATE: 11/25/18 TIME: 14:05 24 HR Interval Summary Free Text/Dictation cytology cell are malignant Exam/Review of Systems Exam Vitals Vital Signs Date Temp Pulse Resp B/P (MAP) Pulse Ox O2 O2 Flow FiO2 Time Delivery Rate 11/25/18 98.1 80 18 116/55 94 13:11 (75) 11/24/18 Room Air 16:16 Intake and Output 11/24/18 11/24/18 11/25/18 1515:00 23:00 07:00 IntakeIntake Total 250 ml 200 ml BalanceBalance 250 ml 200 ml Constitutional: alert, oriented Psych: anxiety, depression Head: normocephalic Eyes: nl conjunctiva ENMT: nl external ears & nose Neck: supple Respiratory: clear to auscultation Cardiovascular: regular rate and rhythm Gastrointestinal: soft Musculoskeletal: nl extremities to inspection Extremities: normal pulses Results Result Diagram: 11/25/18 0418 11/25/18 0418 Results 24hrs Laboratory Tests Test 11/25/18 04:18 White Blood Count 3.7 L Red Blood Count 3.00 L Hemoglobin 9.1 L Hematocrit 28.6 L Mean Corpuscular Volume 95.3 Mean Corpuscular Hemoglobin 30.3 Mean Corpuscular Hemoglobin Concent 31.8 L Red Cell Distribution Width 14.5 Platelet Count 317 Mean Platelet Volume 9.2 Immature Granulocytes % 0.300 Neutrophils % 58.3 Lymphocytes % 27.4 Monocytes % 8.3 Eosinophils % 4.6 Basophils % 1.1 Nucleated Red Blood Cells % 0.0 Immature Granulocytes # 0.010 Neutrophils # 2.2 Lymphocytes # 1.0 Monocytes # 0.3 Eosinophils # 0.2 Basophils # 0.0 Nucleated Red Blood Cells # 0.0 Sodium Level 139 Potassium Level 4.5 Chloride Level 104 Carbon Dioxide Level 27 Anion Gap 8 Blood Urea Nitrogen 23 H Creatinine 1.41 H Est Glomerular Filtrat Rate mL/min 38 L Glucose Level 72 Calcium Level 9.1 Phosphorus Level 5.3 H Magnesium Level 2.1 Medications Medication Current Medications IV Flush (NS 3 ml) 3 ml PER PROTOCOL IV Last administered on 11/21/18 05:24; Admin Dose 3 ML; Start 11/21/18 at 04:30 Ondansetron HCl (Zofran Inj) 4 mg Q6H PRN IV NAUSEA/VOMITING Last administered on 11/21/18 14:23; Admin Dose 4 MG; Start 11/21/18 at 04:30 Acetaminophen (Tylenol Tab) 650 mg Q6H PRN PO .PAIN 1-3 OR TEMP; Start 11/21/18 at 04:30 Albuterol/ Ipratropium (Duoneb) 3 ml Q2H RESP THERAPY PRN HHN SHORTNESS OF BREATH; Start 11/21/18 at 04:30 Morphine Sulfate (morphine) 2 mg Q2H PRN IV SEVERE PAIN LEVEL 7-10; Start 11/21/18 at 12:30 Enoxaparin Sodium (Lovenox) 30 mg DAILY SC Last administered on 11/25/18at 09:47; Admin Dose 30 MG; Start 11/24/18 at 09:00 Polyethylene Glycol (Miralax) 17 gm BID PO Last administered on 11/25/18 09:45; Admin Dose 17 GM; Start 11/23/18 at 21:00 Bisacodyl (Dulcolax) 10 mg DAILY PRN PO CONSTIPATION Last administered on 11/23/18 14:31; Admin Dose 10 MG; Start 11/23/18 at 13:00 Ceftriaxone Sodium 50 ml @ 100 mls/hr Q24H IVPB Last administered on 11/24/18 17:19; Admin Dose 100 MLS/HR; Start 11/23/18 at 15:30; Stop 11/30/18 at 09:00 Pantoprazole (Protonix Tab) 40 mg BID@06,18 PO ; Start 11/25/18 at 18:00 LIZ SILVEIRA M.D. Nov 25, 2018 14:10
--- NOTE | 2018-11-25 14:46 | PAC ---
Date/Time of Note Date/Time of Note DATE: 11/25/18 TIME: 14:46 Post-Anesthesia Notes Post-Anesthesia Note Last documented vital signs Vital Signs Date Temp Pulse Resp B/P (MAP) Pulse Ox O2 O2 Flow FiO2 Time Delivery Rate 11/25/18 98.1 80 18 116/55 94 13:11 (75) 11/24/18 Room Air 16:16 y Activity: WNL Respiratory function: WNL Cardiovascular function: WNL Mental status: Baseline Pain reasonably controlled: Yes Hydration appropriate: Yes Nausea/Vomiting absent: No CHARANJIT CHARLES MD Nov 25, 2018 14:46
--- NOTE | 2018-11-25 15:19 | RADRPT ---
Vent Rate: 68 bpm RR Interval: 0 msec AL Interval: 158 msec QRS Duration: 84 msec QT Interval: 404 msec QTC Interval: 429 msec P-R-T [place]: 44 - 83 - 56 degrees Normal sinus rhythm Normal ECG Electronically Signed By: Scout Llanes
[2018-11-25] MEDS: CEFTRIAXONE 1 GM/50 ML (PMX) 50 ML IVPB SCH (15:56)
[2018-11-25] MEDS: PANTOPRAZOLE (EC) 40 MG TAB PO SCH (18:09)
[2018-11-25 19:40] VITALS: BP 130/73; PULSE 81; RESP 20
[2018-11-26 02:10] VITALS: BP 123/60; PULSE 66; RESP 20
[2018-11-26] MEDS: PANTOPRAZOLE (EC) 40 MG TAB PO SCH ×2 (05:44→17:10)
[2018-11-26 07:49] VITALS: BP 115/55; PULSE 70; RESP 18
--- NOTE | 2018-11-26 09:07 | PN ---
Date/Time of Note Date/Time of Note DATE: 11/26/18 TIME: 09:05 Assessment/Plan VTE Prophylaxis Risk score (from Ns)>0 risk: 5 SCD applied (from Ns): No SCD contraindicated: other Pharmacological prophylaxis: LMWH Lines/Catheters IV C[facility]ter Type (from [facility] Saline Lock Urinary Cath still in place: No Assessment/Plan Hospital Course SUBJECTIVE: Denies any abdominal pain. Patient is aware that that she has underlying cancer. OBJECTIVE: Physical Exam General: Adequately build 63 year-old female lying in bed in no apparent distress. HEENT: Normocephalic, atraumatic. Eyes: Anicteric sclerae, conjunctivae clear. ENT: Nasal septum midline, oral mucosa moist. Neck supple. Respiratory: Bilaterally clear breath sounds. No use of accessory muscles of respiration. No adventitious breath sounds. Cardiovascular: S1, S2 heard. Regular rate and rhythm. Abdomen: Soft and non-distended. Bowel sounds positive in all 4 quadrants. Genitourinary: Deferred. Extremities: No cyanosis, no clubbing, no edema. Peripheral pulses palpable. Neurologic: Cranial nerves II through XII grossly intact. The patient is awake, alert, and oriented. Skin: Normal skin turgor. No skin rashes. Labs & Vitals per chart ASSESSMENT & PLAN 63-year-old female with remote history of ovarian cancer, who presented to the emergency room with chief complaint of abdominal distention. The patient underwent an ultrasound-guided paracentesis with removal of 5000 cc of dark red fluid. CT scan of the abdomen and pelvis was showing extensive left upper quadrant mesenteric/omental stranding and nodularity which may reflect pathology of lymphadenopathy or peritoneal carcinomatosis. The patient was admitted to inpatient setting for further treatment and evaluation. 1. New onset ascites. -Status post paracentesis with drainage of 5 L of dark red fluid. -Abdominal fluid cytology positive for malignant cells, compatible with metastatic adenocarcinoma. -Gastric ulcer biopsy revealed poorly differentiated adenocarcinoma. -Being followed by oncology. -Started on ceftriaxone for possible SBP. 2. History of ovarian cancer. -Being followed by oncology. 3. 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 -Being followed by oncology. -Status post colonoscopy on 11/24/2018 that showed a 4 mm sessile polyp and moderate sized internal hemorrhoids. -Status post esophagogastroduodenoscopy on 11/24/2018 that showed moderate distal esophagitis and atypical gastric ulceration and infiltration of the body of the stomach. Biopsy revealed poorly differentiated adenocarcinoma. 4. Acute kidney injury. -Unknown baseline creatinine. -Monitor BUN and creatinine closely. -Use nephrotoxic drugs with caution. 5. Normocytic, normochromic anemia. -Most probably anemia chronic disease -Monitor H&H closely. 6. Fluids, electrolytes, and nutrition. -Regular diet. 7. DVT prophylaxis. -Subcutaneous Lovenox (renal dose). 8. Plan. -As per oncology, the patient will be started on systemic chemotherapy. The patient was seen in collaboration with Dr. Martin. Result Diagram: 11/26/1842311/26/18423 Results 24hrs Laboratory Tests Test 11/26/18 04:24 White Blood Count 4.0 L Red Blood Count 2.81 L Hemoglobin 8.6 L Hematocrit 26.3 L Mean Corpuscular Volume 93.6 Mean Corpuscular Hemoglobin 30.6 Mean Corpuscular Hemoglobin Concent 32.7 Red Cell Distribution Width 14.1 Platelet Count 306 Mean Platelet Volume 9.2 Immature Granulocytes % 0.000 L Neutrophils % 57.9 Lymphocytes % 28.5 Monocytes % 8.4 Eosinophils % 4.2 Basophils % 1.0 Nucleated Red Blood Cells % 0.0 Immature Granulocytes # 0.000 Neutrophils # 2.3 Lymphocytes # 1.2 Monocytes # 0.3 Eosinophils # 0.2 Basophils # 0.0 Nucleated Red Blood Cells # 0.0 Sodium Level 139 Potassium Level 4.3 Chloride Level 107 Carbon Dioxide Level 26 Anion Gap 6 Blood Urea Nitrogen 26 H Creatinine 1.45 H Est Glomerular Filtrat Rate mL/min 37 L Glucose Level 90 Calcium Level 9.0 Phosphorus Level 4.9 Magnesium Level 2.1 Exam/Review of Systems Exam Vitals Vital Signs Date Temp Pulse Resp B/P (MAP) Pulse Ox O2 O2 Flow FiO2 Time Delivery Rate 11/26/18 98.2 70 18 115/55 96 Room Air 07:49 (75) Intake and Output 11/25/18 11/25/18 11/26/18 1515:00 23:00 07:00 IntakeIntake Total 200 ml 50 ml BalanceBalance 200 ml 50 ml Results Results 24hrs Laboratory Tests Test 11/26/18 04:24 White Blood Count 4.0 L Red Blood Count 2.81 L Hemoglobin 8.6 L Hematocrit 26.3 L Mean Corpuscular Volume 93.6 Mean Corpuscular Hemoglobin 30.6 Mean Corpuscular Hemoglobin Concent 32.7 Red Cell Distribution Width 14.1 Platelet Count 306 Mean Platelet Volume 9.2 Immature Granulocytes % 0.000 L Neutrophils % 57.9 Lymphocytes % 28.5 Monocytes % 8.4 Eosinophils % 4.2 Basophils % 1.0 Nucleated Red Blood Cells % 0.0 Immature Granulocytes # 0.000 Neutrophils # 2.3 Lymphocytes # 1.2 Monocytes # 0.3 Eosinophils # 0.2 Basophils # 0.0 Nucleated Red Blood Cells # 0.0 Sodium Level 139 Potassium Level 4.3 Chloride Level 107 Carbon Dioxide Level 26 Anion Gap 6 Blood Urea Nitrogen 26 H Creatinine 1.45 H Est Glomerular Filtrat Rate mL/min 37 L Glucose Level 90 Calcium Level 9.0 Phosphorus Level 4.9 Magnesium Level 2.1 Medications Medication Current Medications IV Flush (NS 3 ml) 3 ml PER PROTOCOL IV Last administered on 11/21/18 05:24; Admin Dose 3 ML; Start 11/21/18 at 04:30 Ondansetron HCl (Zofran Inj) 4 mg Q6H PRN IV NAUSEA/VOMITING Last administered on 11/21/18 14:23; Admin Dose 4 MG; Start 11/21/18 at 04:30 Acetaminophen (Tylenol Tab) 650 mg Q6H PRN PO .PAIN 1-3 OR TEMP; Start 11/21/18 at 04:30 Albuterol/ Ipratropium (Duoneb) 3 ml Q2H RESP THERAPY PRN HHN SHORTNESS OF BREATH; Start 11/21/18 at 04:30 Morphine Sulfate (morphine) 2 mg Q2H PRN IV SEVERE PAIN LEVEL 7-10; Start 11/21/18 at 12:30 Enoxaparin Sodium (Lovenox) 30 mg DAILY SC Last administered on 11/25/18 09:47; Admin Dose 30 MG; Start 11/24/18 at 09:00 Polyethylene Glycol (Miralax) 17 gm BID PO Last administered on 11/25/18at 22:40; Admin Dose 17 GM; Start 11/23/18 at 21:00 Bisacodyl (Dulcolax) 10 mg DAILY PRN PO CONSTIPATION Last administered on 11/23/18 14:31; Admin Dose 10 MG; Start 4/1/19 at 13:00 Ceftriaxone Sodium 50 ml @ 100 mls/hr Q24H IVPB Last administered on 11/25/18at 15:56; Admin Dose 100 MLS/HR; Start 11/23/18 at 15:30; Stop 11/30/18 at 09:00 Pantoprazole (Protonix Tab) 40 mg BID@06,18 PO Last administered on 11/26/18at 05:44; Admin Dose 40 MG; Start 11/25/18 at 18:00 CAMERON CHOWDHURY STILL OPERATOR Nov 26, 2018 09:07
[2018-11-26] MEDS: POLYETHYLENE GLYCOL 17 GM PACKET PO SCH ×2 (09:09→21:51)
[2018-11-26] MEDS: ENOXAPARIN 30 MG/0.3 ML SYG SC SCH (09:12)
--- NOTE | 2018-11-26 10:52 | CONS ---
Assessment/Plan Assessment/Plan Hospital Course (Demo Recall) #Metastatic Gastric cancer -with peritoneal involvement and malignant ascites -will place port a cath for chemo administration -pt can be discharged to start chemotherapy as an out patient -she will need 5fu based chemotherapy -will order MSI, PD-L1 and Her 2 on tumor cells -due to insurance reasons pt will start chemotherapy at [facility] Thank you for the opportunity to participate in this patients care A total of 40 minutes of face to face time was spent speaking with the patient, of which greater than 50% was spent in counseling and coordination of care and the detailed question and answer session. Consultation Date/Type/Reason Admit Date/Time Nov 21, 2018 at 03:20 Initial Consult Date 11/23/18 Type of Consult oncology Reason for Consultation metastatic gastric cancer Requesting Provider: ROACIO IGNACIO MD Date/Time of Note DATE: 11/26/18 TIME: 10:48 24 HR Interval Summary Free Text/Dictation pt is now been diagnosed metastatic gastric cancer Exam/Review of Systems Exam Vitals Vital Signs Date Temp Pulse Resp B/P (MAP) Pulse Ox O2 O2 Flow FiO2 Time Delivery Rate 11/26/18 98.2 70 18 115/55 96 Room Air 07:49 (75) Intake and Output 11/25/18 11/25/18 11/26/18 1414:59 22:59 06:59 IntakeIntake Total 200 ml 50 ml BalanceBalance 200 ml 50 ml Constitutional: alert, oriented, distress, frail Psych: anxiety, depression Head: normocephalic Eyes: nl conjunctiva ENMT: nl external ears & nose Neck: supple Respiratory: clear to auscultation Cardiovascular: regular rate and rhythm Gastrointestinal: soft, ascites Musculoskeletal: nl extremities to inspection Extremities: normal pulses Skin: nl turgor Results Result Diagram: 11/26/18 0424 11/26/18 0424 Results 24hrs Laboratory Tests Test 11/26/18 04:24 11/26/18 10:11 White Blood Count 4.0 L Red Blood Count 2.81 L Hemoglobin 8.6 L Hematocrit 26.3 L Mean Corpuscular Volume 93.6 Mean Corpuscular Hemoglobin 30.6 Mean Corpuscular Hemoglobin Concent 32.7 Red Cell Distribution Width 14.1 Platelet Count 306 Mean Platelet Volume 9.2 Immature Granulocytes % 0.000 L Neutrophils % 57.9 Lymphocytes % 28.5 Monocytes % 8.4 Eosinophils % 4.2 Basophils % 1.0 Nucleated Red Blood Cells % 0.0 Immature Granulocytes # 0.000 Neutrophils # 2.3 Lymphocytes # 1.2 Monocytes # 0.3 Eosinophils # 0.2 Basophils # 0.0 Nucleated Red Blood Cells # 0.0 Sodium Level 139 Potassium Level 4.3 Chloride Level 107 Carbon Dioxide Level 26 Anion Gap 6 Blood Urea Nitrogen 26 H Creatinine 1.45 H Est Glomerular Filtrat Rate mL/min 37 L Glucose Level 90 Calcium Level 9.0 Phosphorus Level 4.9 Magnesium Level 2.1 Prothrombin Time 12.8 Prothrombin Time Ratio 1.0 INR International Normalized Ratio 0.95 Medications Medication Current Medications IV Flush (NS 3 ml) 3 ml PER PROTOCOL IV Last administered on 11/21/18 05:24; Admin Dose 3 ML; Start 11/21/18 at 04:30 Ondansetron HCl (Zofran Inj) 4 mg Q6H PRN IV NAUSEA/VOMITING Last administered on 11/21/18 14:23; Admin Dose 4 MG; Start 11/21/18 at 04:30 Acetaminophen (Tylenol Tab) 650 mg Q6H PRN PO .PAIN 1-3 OR TEMP; Start 11/21/18 at 04:30 Albuterol/ Ipratropium (Duoneb) 3 ml Q2H RESP THERAPY PRN HHN SHORTNESS OF BREATH; Start 11/21/18 at 04:30 Morphine Sulfate (morphine) 2 mg Q2H PRN IV SEVERE PAIN LEVEL 7-10; Start 11/21/18 at 12:30 Enoxaparin Sodium (Lovenox) 30 mg DAILY SC Last administered on 11/26/18 09:12; Admin Dose 30 MG; Start 11/24/18 at 09:00 Polyethylene Glycol (Miralax) 17 gm BID PO Last administered on 11/26/18 09:09; Admin Dose 17 GM; Start 11/23/18 at 21:00 Bisacodyl (Dulcolax) 10 mg DAILY PRN PO CONSTIPATION Last administered on 11/23/18 14:31; Admin Dose 10 MG; Start 11/23/18 at 13:00 Ceftriaxone Sodium 50 ml @ 100 mls/hr Q24H IVPB Last administered on 11/25/18 15:56; Admin Dose 100 MLS/HR; Start 11/23/18 at 15:30; Stop 11/30/18 at 09:00 Pantoprazole (Protonix Tab) 40 mg BID@06,18 PO Last administered on 11/26/18at 05 :44; Admin Dose 40 MG; Start 11/25/18 at 18:00 LIZ SILVEIRA M.D. Nov 26, 2018 10:51
--- NOTE | 2018-11-26 13:21 | PN ---
Date/Time of Note Date/Time of Note DATE: 11/26/18 TIME: 13:19 Assessment/Plan VTE Prophylaxis Risk score (from Ns)>0 risk: 3 SCD applied (from Ns): Yes Pharmacological prophylaxis: other (scds) Lines/Catheters [facility] Saline Lock Urinary Cath still in place: No Assessment/Plan Hospital Course Summary Assessment and Plan: Assessment: Metastatic Gastric cancer -with malignant ascites Abdominal distensions 2/2 to ascites -cytology shows malignant cells -S/p paracentesis 11/21/18 with removal of 5 liters of dark red fluid- -WBC from paracentesis noted to be 973 with a polynuclear WBC % 10.6 Suspect for SBP Query gastric wall thickening on imaging -Ddx artifactual due to incomplete distension vs reflect gastritis vs neoplasm- EGD recommend by radiology EGD 11/24/18 Moderate distal esophagitis Atypical Gastric ulceration and infiltration of the body of the stomach, bx obtained. Rule out cancer Atrophic antrum Cholelithiasis versus sludge in the mildly distended gallbladder Normocytic anemia Colonoscopy 11/24/18 4 mm sessile polyp proximal ascending colon, ablated Moderate-sized internal hemorrhoids Otherwise normal colonoscopy History of ovarian cancer- 30 years ago treated with chemotherapy Renal insufficiency HTN Plan: Bx- reviewed f/u Onc recommendations Gi will sign off at this time Patient seen in collaboration with Dr. Mc Subjective: Course reviewed with nursing staff Patient interviewed and examined All labs, imaging and other results reviewed The patient sitting up in bed, with family at bedside No over night events, she states she spoke to the oncologist with plan to f/u after discharge. PHYSICAL EXAMINATION: GENERAL: Well developed, well nourished, alert & oriented x 3, in no acute distress SKIN: No lesions HEAD: Normocephalic, atraumatic, no tenderness. EYES: Pupils equal reactive to light, no discharge. EARS/NOSE AND THROAT: Ears normal, nose normal, oropharynx normal. NECK: Supple, no masses CHEST: Inspection within normal limits. CARDIOVASCULAR: Heart: Regular rate and rhythm, no murmurs RESPIRATORY: Lungs clear to auscultation and percussion, no wheezing, no rubs GASTROINTESTINAL AND LIVER: Abdomen: Soft, non tenderness, distended, no hernias, no masses, no organomegaly, ascites, no guarding, no rebound tenderness, normoactive bowel sounds. Rectal: Deferred. EXTREMITIES: Result Diagram: 11/26/18 0424 11/26/18 0424 Results 24hrs Laboratory Tests Test 11/26/18 04:24 11/26/18 10:11 White Blood Count 4.0 L Red Blood Count 2.81 L Hemoglobin 8.6 L Hematocrit 26.3 L Mean Corpuscular Volume 93.6 Mean Corpuscular Hemoglobin 30.6 Mean Corpuscular Hemoglobin Concent 32.7 Red Cell Distribution Width 14.1 Platelet Count 306 Mean Platelet Volume 9.2 Immature Granulocytes % 0.000 L Neutrophils % 57.9 Lymphocytes % 28.5 Monocytes % 8.4 Eosinophils % 4.2 Basophils % 1.0 Nucleated Red Blood Cells % 0.0 Immature Granulocytes # 0.000 Neutrophils # 2.3 Lymphocytes # 1.2 Monocytes # 0.3 Eosinophils # 0.2 Basophils # 0.0 Nucleated Red Blood Cells # 0.0 Sodium Level 139 Potassium Level 4.3 Chloride Level 107 Carbon Dioxide Level 26 Anion Gap 6 Blood Urea Nitrogen 26 H Creatinine 1.45 H Est Glomerular Filtrat Rate mL/min 37 L Glucose Level 90 Calcium Level 9.0 Phosphorus Level 4.9 Magnesium Level 2.1 Prothrombin Time 12.8 Prothrombin Time Ratio 1.0 INR International Normalized Ratio 0.95 Exam/Review of Systems Exam Vitals Vital Signs Date Temp Pulse Resp B/P (MAP) Pulse Ox O2 O2 Flow FiO2 Time Delivery Rate 11/26/18 98.2 70 18 115/55 96 Room Air 07:49 (75) Intake and Output 11/25/18 11/25/18 11/26/18 1515:00 23:00 07:00 IntakeIntake Total 200 ml 50 ml BalanceBalance 200 ml 50 ml Results Results 24hrs Laboratory Tests Test 11/26/18 04:24 11/26/18 10:11 White Blood Count 4.0 L Red Blood Count 2.81 L Hemoglobin 8.6 L Hematocrit 26.3 L Mean Corpuscular Volume 93.6 Mean Corpuscular Hemoglobin 30.6 Mean Corpuscular Hemoglobin Concent 32.7 Red Cell Distribution Width 14.1 Platelet Count 306 Mean Platelet Volume 9.2 Immature Granulocytes % 0.000 L Neutrophils % 57.9 Lymphocytes % 28.5 Monocytes % 8.4 Eosinophils % 4.2 Basophils % 1.0 Nucleated Red Blood Cells % 0.0 Immature Granulocytes # 0.000 Neutrophils # 2.3 Lymphocytes # 1.2 Monocytes # 0.3 Eosinophils # 0.2 Basophils # 0.0 Nucleated Red Blood Cells # 0.0 Sodium Level 139 Potassium Level 4.3 Chloride Level 107 Carbon Dioxide Level 26 Anion Gap 6 Blood Urea Nitrogen 26 H Creatinine 1.45 H Est Glomerular Filtrat Rate mL/min 37 L Glucose Level 90 Calcium Level 9.0 Phosphorus Level 4.9 Magnesium Level 2.1 Prothrombin Time 12.8 Prothrombin Time Ratio 1.0 INR International Normalized Ratio 0.95 Medications Medication Current Medications IV Flush (NS 3 ml) 3 ml PER PROTOCOL IV Last administered on 11/21/18 05:24; Admin Dose 3 ML; Start 11/21/18 at 04:30 Ondansetron HCl (Zofran Inj) 4 mg Q6H PRN IV NAUSEA/VOMITING Last administered on 11/21/18 14:23; Admin Dose 4 MG; Start 11/21/18 at 04:30 Acetaminophen (Tylenol Tab) 650 mg Q6H PRN PO .PAIN 1-3 OR TEMP; Start 11/21/18 at 04:30 Albuterol/ Ipratropium (Duoneb) 3 ml Q2H RESP THERAPY PRN HHN SHORTNESS OF BREATH; Start 11/21/18 at 04:30 Morphine Sulfate (morphine) 2 mg Q2H PRN IV SEVERE PAIN LEVEL 7-10; Start 11/21/18 at 12:30 Enoxaparin Sodium (Lovenox) 30 mg DAILY SC Last administered on 11/26/18 09:12; Admin Dose 30 MG; Start 11/24/18 at 09:00 Polyethylene Glycol (Miralax) 17 gm BID PO Last administered on 11/26/18 09:09; Admin Dose 17 GM; Start 11/23/18 at 21:00 Bisacodyl (Dulcolax) 10 mg DAILY PRN PO CONSTIPATION Last administered on 11/23/18 14:31; Admin Dose 10 MG; Start 11/23/18 at 13:00 Ceftriaxone Sodium 50 ml @ 100 mls/hr Q24H IVPB Last administered on 11/25/18 15:56; Admin Dose 100 MLS/HR; Start 11/23/18 at 15:30; Stop 11/30/18 at 09:00 Pantoprazole (Protonix Tab) 40 mg BID@06,18 PO Last administered on 11/26/18at 05:44; Admin Dose 40 MG; Start 11/25/18 at 18:00 LEILANI FELTON Nov 26, 2018 13:21
[2018-11-26] MEDS: CEFTRIAXONE 1 GM/50 ML (PMX) 50 ML IVPB SCH (15:03)
[2018-11-26 15:30] VITALS: BP 106/58; PULSE 84; RESP 17
[2018-11-26 20:10] VITALS: BP 118/63; PULSE 72; RESP 20
[2018-11-27 02:19] VITALS: BP 110/62; PULSE 77; RESP 17
[2018-11-27] MEDS: PANTOPRAZOLE (EC) 40 MG TAB PO SCH (05:45)
[2018-11-27 08:23] VITALS: BP 121/74; PULSE 79; RESP 18
[2018-11-27] MEDS: POLYETHYLENE GLYCOL 17 GM PACKET PO SCH (09:00)
[2018-11-27] MEDS ORDERED: HEPARIN 1000 UNITS/ML 10 ML INJ ONE (09:33)
[2018-11-27] MEDS ORDERED: MIDAZOLAM 1 MG/ML 2 ML INJ ONE (09:34)
[2018-11-27] MEDS ORDERED: FENTAnyl 50 MCG/ML VIAL ONE (09:34)
[2018-11-27] MEDS ORDERED: LIDOCAINE 1%/EPI (1:100,000) (MDV) 20 ML ONE (09:34)
[2018-11-27] MEDS ORDERED: SOD CHLORIDE 0.9% 500 ML ONE (09:35)
[2018-11-27] MEDS ORDERED: SOD CHLORIDE 0.9% 1,000 ML IV SCH (09:43)
[2018-11-27] MEDS ORDERED: POLYMYXIN/BACITRACIN 1L IRRIG IRR ONE (10:00)
[2018-11-27] MEDS ORDERED: CEFAZOLIN 1 GM/50 ML (PMX) 50 ML IVPB ONE (10:00)
[2018-11-27] MEDS ORDERED: PANT40TA4 PO (10:46)
--- NOTE | 2018-11-27 10:48 | PDOCDIS ---
Discharge Instructions CONDITION Frect4Ct Patient Condition: [id number] Guarded HOME CARE INSTRUCTIONS: [id number] Diet Instructions: [id number] Reduced Sodium FOLLOW UP/APPOINTMENTS Follow-up Plan [facility]. OTHER ORDERS: Other Orders: 1. Take medications as per prescription. 2. Take a regular, preferably low-cholesterol, low-sodium diet. 3. Resume activities as tolerated. 4. Follow-up with [facility] on December 01, 2018. 5. Please go to the nearest emergency room if you have significant abdominal pain, persistent fevers, significant shortness of breath, or any other unusual signs/symptoms. CAMERON CHOWDHURY NP Nov 27, 2018 10:48
--- NOTE | 2018-11-27 10:55 | DS ---
Date/Time of Note Date/Time of Note DATE: 11/27/18 TIME: 10:50 Discharge Summary Admission/Discharge Info Admit Date/Time Nov 21, 2018 at 03:20 Discharge Date/Time Discharge Diagnosis 1. 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 2. Malignant ascites. 3. Acute kidney injury. 4. Normocytic, normochromic anemia. 5. Remote history of ovarian cancer. Patient Condition: Stable Consults 1. Shilpa Alexandre MD, Oncology. 2. Claudio Mc MD, Gastroenterology. Procedures FLUOROSCOPIC AND ULTRASONOGRAPHIC-GUIDED PLACEMENT OF RIGHT CHEST PORT on 11/27/2018 IMPRESSION: 1. Successful ultrasonographic and fluoroscopic guided placement of right chest power port. Esophagogastroduodenoscopy on 11/24/2018. Impression: 1. Moderate distal esophagitis. 2. Atypical, highly suspect gastric ulceration and infiltration of the body of the stomach. 3. Atrophic antrum. Colonoscopy on 11/24/2018. Impression: 1. 4 mm sessile polyp in the proximal ascending colon, ablated. 2. Moderate sized internal hemorrhoids. 2D Echocardiogram Conclusions: Hyperdynamic left ventricular systolic function. Moderate asymmetric septal hypertrophy. Reduced left ventricular cavity size. Ejection fraction is visually estimated at 70 %. Tissue Doppler/Mitral Doppler indices are consistent with impaired relaxation (Stage I diastolic dysfunction). Normal right ventricular size. Normal right ventricular systolic function. The left atrium is normal in size. The right atrium is normal in size. Mild mitral valve regurgitation. No significant aortic stenosis or insufficiency. There is mild tricuspid regurgitation. Normal pericardium with no significant pericardial effusion. Pleural effusion seen. Hx of Present Illness This is a 63-year-old female with remote history of ovarian cancer, who presented to the emergency room with chief complaint of abdominal distention. The patient underwent an ultrasound-guided paracentesis with removal of 5000 cc of dark red fluid. CT scan of the abdomen and pelvis was showing extensive left upper quadrant mesenteric/omental stranding and nodularity which may reflect pathology of lymphadenopathy or peritoneal carcinomatosis. The patient was admitted to inpatient setting for further treatment and evaluation. Hospital Course Gastroenterology and oncology consult was obtained. The patient's CT scan of the abdomen and pelvis was also showing gastric wall thickening in the fundus and body. The patient's fluid analysis from paracentesis showed malignant cells. The patient underwent an esophagogastroduodenoscopy and colonoscopy on 11/24/2018. The esophagogastroduodenoscopy was showing moderate distal esophagitis and atypical gastric ulceration/infiltration of the body of the stomach. Biopsies were obtained. The biopsies from gastric mucosa showed poorly differentiated adenocarcinoma. Therefore, the patient was confirmed with adenocarcinoma of the stomach. Therefore, oncology recommended putting an access for initiating chemotherapy and to start the patient on 5-fluorouracil based chemotherapy. However, because of insurance reasons, chemotherapy will be initiated at [facility]. Case management arranged to follow-up with [facility] at the earliest and the patient got an appointment on December 01, 2018. The patient was noticed to have acute kidney injury. The patient's baseline creatinine is unknown. Nephrotoxic drugs were used with caution on this patient. The patient was noted to be taking KRUNAL inhibitors at home. This was w ithheld. The patient's blood pressure remained stable off antihypertensives. The patient had normocytic, normochromic anemia. This could be anemia of chronic disease. The patient was started on SBP prophylaxis with ceftriaxone because of the paracentesis fluid showing WBC of 973 and fluid polynuclear WBCs of 10.6. The patient's fluid culture remained negative. The patient's ascites is secondary to underlying malignancy. There is no indication for spontaneous bacterial peritonitis prophylaxis on this patient based on guidelines. Therefore, the patient will not be maintained on any SBP prophylaxis upon discharge. The patient had a stable hospital course. The patient is stable to be discharged home, to be followed up with outpatient oncology. Discharge Instructions 1. Take medications as per prescription. 2. Take a regular, preferably low-cholesterol, low-sodium diet. 3. Resume activities as tolerated. 4. Follow-up with [facility] on December 01, 2018. 5. Please go to the nearest emergency room if you have significant abdominal pain, persistent fevers, significant shortness of breath, or any other unusual signs/symptoms. The patient verbalized understanding of her discharge instructions. At this time I would like to thank all the consultants for seeing the patient and providing clinical recommendations. The patient was seen in collaboration with Dr. Martin. [employer] Meds Active Scripts Pantoprazole* (Pantoprazole*) 40 Mg Tablet., 40 MG PO BID@, #60 TAB Prov:CAMERON CHOWDHURY NP 11/27/18 Discontinued Reported Medications Benazepril Hcl* (Benazepril Hcl*) 20 Mg Tablet, 20 MG PO DAILY, #30 TAB 11/21/18 Follow-up Plan [facility]. Primary Care Provider Care Physician No Primary Time spent on discharge: > 30 minutes Pending Labs [facility] a non-profit non-sectarian [facility] [place] [address] ; Lab No: [id number] Date: 11/24/2018 SPECIMEN: A-Gastric ulcer biopsy B-Ascending colon polyp biopsy CLINICAL: Rule out malignancy GROSS EXAMINATION: Received in formalin are fourteen fragments of medina-major, soft tissue that measure less than 0.1 cm in greatest dimension up to 0.3 x 0.2 x less than 0.1 cm. Totally submitted in cassette A. B-Received in formalin are two fragments of major-pink, soft tissue that measure 0.1 x 0.1 x 0.1 cm and 0.3 x 0.2 x 0.1 cm. Totally submitted in cassette B. IMMUNOHISTOCHEMICAL STAINS: Immunohistochemical stains are performed on formalin-fixed, paraffin-embedded block (A) containing section of the gastric ulcer biopsies. Positive and negative controls, run in tandem, are stained appropriately. The results of the immunohistochemical stains are summarized below. Mammaglobin (cytoplasmic): Negative GCDFP-15 (cytoplasmic): Negative GATA3 (nuclear): Negative The results of the above immunohistochemical stains mitigate against metastatic mammary carcinoma. MICROSCOPIC DIAGNOSIS: A-Gastric ulcer biopsies: -- Poorly-differentiated adenocarcinoma, mixed infused and intestinal type, associated with an ulceration with acute fibrinoneutrophilic exudate (please see comment). -- Moderate superficial chronic gastritis in non-involved gastric mucosa. -- A PAS stain with diastase counterstain and appropriate control, is positive for mucin secretion by tumor cells. -- A Giemsa stain with an appropriate control, is negative for H. pylori organisms. -- No intestinal metaplasia is identified. B-Ascending colon polyp, biopsy: -- Tubulovillous adenoma. -- No normal colon mucosa is noted. -- No high grade dysplasia is identified. Laboratory Tests Test 11/27/18 04:18 White Blood Count 3.9 10^3/ul (4.8-10.8) Red Blood Count 2.72 10^6/ul (4.20-5.40) Hemoglobin 8.4 g/dl (12.0-16.0) Hematocrit 25.8 % (37.0-47.0) Mean Corpuscular Volume 94.9 fl (82.0-101.0) Mean Corpuscular Hemoglobin 30.9 pg (29.0-33.0) Mean Corpuscular Hemoglobin Concent 32.6 g/dl (32.0-37.0) Red Cell Distribution Width 14.3 % (11.5-14.5) Platelet Count 313 10^3/UL (140-415) Mean Platelet Volume 9.5 fl (7.4-10.4) Immature Granulocytes % 0.000 % (0.001-0.429) Neutrophils % 57.7 % (39.0-77.0) Lymphocytes % 28.9 % (15.0-51.0) Monocytes % 8.1 % (0.0-11.0) Eosinophils % 4.3 % (0.0-7.0) Basophils % 1.0 % (0.0-2.0) Nucleated Red Blood Cells % 0.0 /100WBC (0.0-0.0) Immature Granulocytes # 0.000 10^3/ul (0.0-0.031) Neutrophils # 2.3 10^3/ul (1.6-7.5) Lymphocytes # 1.1 10^3/ul (0.8-2.9) Monocytes # 0.3 10^3/ul (0.3-0.9) Eosinophils # 0.2 10^3/ul (0.0-0.5) Basophils # 0.0 10^3/ul (0.0-0.1) Nucleated Red Blood Cells # 0.0 10^3/ul (0.0-0.0) Sodium Level 142 mmol/L (135-144) Potassium Level 4.2 mmol/L (3.5-5.1) Chloride Level 107 mmol/L (97-110) Carbon Dioxide Level 31 mmol/L (21-31) Anion Gap 4 (5-13) Blood Urea Nitrogen 23 mg/dl (7-20) Creatinine 1.32 mg/dl (0.44-1.00) Est Glomerular Filtrat Rate mL/min 41 mL/min (>60) Glucose Level 92 mg/dl (70-220) Calcium Level 8.8 mg/dl (8.4-10.2) Phosphorus Level 4.1 mg/dl (2.5-4.9) Magnesium Level 2.1 mg/dl (1.7-2.5) CAMERON CHOWDHURY NP Nov 27, 2018 10:55
--- NOTE | 2018-11-27 11:50 | HPN ---
Date/Time of Note Date/Time of Note DATE: 11/27/18 TIME: 11:50 Interval H&P Admission Note Pt. seen H&P reviewed: No system changes ROHAN SOTO MD Nov 27, 2018 11:50
--- NOTE | 2018-11-27 12:50 | CONS ---
Assessment/Plan Assessment/Plan Hospital Course (Demo Recall) #Metastatic Gastric cancer -with peritoneal involvement and malignant ascites -s/p port a cath placement for chemo administration -pt can be discharged to start chemotherapy as an out patient -she will need 5fu based chemotherapy -will order MSI, PD-L1 and Her 2 on tumor cells -due to insurance reasons pt will start chemotherapy at [facility] Thank you for the opportunity to participate in this patients care A total of 40 minutes of face to face time was spent speaking with the patient, of which greater than 50% was spent in counseling and coordination of care and the detailed question and answer session. Consultation Date/Type/Reason Admit Date/Time Nov 21, 2018 at 03:20 Initial Consult Date 11/23/18 Type of Consult oncology Reason for Consultation metastatic gastric cancer Requesting Provider: ORACIO IGNACIO MD Date/Time of Note DATE: 11/27/18 TIME: 12:49 24 HR Interval Summary Free Text/Dictation no acute overnight events. pt had port a cath placed today Exam/Review of Systems Exam Vitals Vital Signs Date Temp Pulse Resp B/P (MAP) Pulse Ox O2 O2 Flow FiO2 Time Delivery Rate 11/27/18 98.4 79 18 121/74 100 Room Air 08:23 (90) Intake and Output 11/26/18 11/26/18 11/27/18 1515:00 23:00 07:00 IntakeIntake Total 600 ml 450 ml BalanceBalance 600 ml 450 ml Constitutional: alert, oriented Psych: anxiety, depression Head: normocephalic Eyes: nl conjunctiva ENMT: nl external ears & nose Neck: supple Respiratory: clear to auscultation Cardiovascular: regular rate and rhythm Gastrointestinal: ascites Musculoskeletal: nl extremities to inspection Results Result Diagram: 11/27/18 0418 11/27/18 0418 Results 24hrs Laboratory Tests Test 11/27/18 04:18 White Blood Count 3.9 L Red Blood Count 2.72 L Hemoglobin 8.4 L Hematocrit 25.8 L Mean Corpuscular Volume 94.9 Mean Corpuscular Hemoglobin 30.9 Mean Corpuscular Hemoglobin Concent 32.6 Red Cell Distribution Width 14.3 Platelet Count 313 Mean Platelet Volume 9.5 Immature Granulocytes % 0.000 L Neutrophils % 57.7 Lymphocytes % 28.9 Monocytes % 8.1 Eosinophils % 4.3 Basophils % 1.0 Nucleated Red Blood Cells % 0.0 Immature Granulocytes # 0.000 Neutrophils # 2.3 Lymphocytes # 1.1 Monocytes # 0.3 Eosinophils # 0.2 Basophils # 0.0 Nucleated Red Blood Cells # 0.0 Sodium Level 142 Potassium Level 4.2 Chloride Level 107 Carbon Dioxide Level 31 Anion Gap 4 L Blood Urea Nitrogen 23 H Creatinine 1.32 H Est Glomerular Filtrat Rate mL/min 41 L Glucose Level 92 Calcium Level 8.8 Phosphorus Level 4.1 Magnesium Level 2.1 Medications Medication Current Medications IV Flush (NS 3 ml) 3 ml PER PROTOCOL IV Last administered on 11/21/18 05:24; Admin Dose 3 ML; Start 11/21/18 at 04:30 Ondansetron HCl (Zofran Inj) 4 mg Q6H PRN IV NAUSEA/VOMITING Last administered on 11/21/18 14:23; Admin Dose 4 MG; Start 11/21/18 at 04:30 Acetaminophen (Tylenol Tab) 650 mg Q6H PRN PO .PAIN 1-3 OR TEMP; Start 11/21/18 at 04:30 Albuterol/ Ipratropium (Duoneb) 3 ml Q2H RESP THERAPY PRN HHN SHORTNESS OF BREATH; Start 11/21/18 at 04:30 Morphine Sulfate (morphine) 2 mg Q2H PRN IV SEVERE PAIN LEVEL 7-10; Start 11/21/18 at 12:30 Enoxaparin Sodium (Lovenox) 30 mg DAILY SC Last administered on 11/26/18 09:12; Admin Dose 30 MG; Start 11/24/18 at 09:00; Status Hold Polyethylene Glycol (Miralax) 17 gm BID PO Last administered on 11/26/18 21:51; Admin Dose 17 GM; Start 11/23/18 at 21:00 Bisacodyl (Dulcolax) 10 mg DAILY PRN PO CONSTIPATION Last administered on 11/23/18 14:31; Admin Dose 10 MG; Start 11/23/18 at 13:00 Ceftriaxone Sodium 50 ml @ 100 mls/hr Q24H IVPB Last administered on 11/26/18 15:03; Admin Dose 100 MLS/HR; Start 11/23/18 at 15:30; Stop 11/30/18 at 09:00 Pantoprazole (Protonix Tab) 40 mg BID@06,18 PO Last administered on 11/27/18at 05:45; Admin Dose 40 MG; Start 11/25/18 at 18:00 Sodium Chloride 1,000 ml @ 30 mls/hr Q24H IV ; Start 11/27/18 at 09:43 LIZ SILVEIRA M.D. Nov 27, 2018 12:50
== END 2018-11-27 14:30 | disposition home or self-care (01) | DRG 374 ==
LOC: E/R 19:25 → MS1 11-21 03:20 → EDBEDREQ 11-21 03:25
PROVIDERS: ADMIT Internal Medicine; ATTEND Internal Medicine
PROC: 0DBK8ZX Excision of Ascending Colon, Via Natural or Artificial Opening Endoscopic, Diagnostic (ICD-10-PCS; 2018-11-24)
PROC: 0DB68ZX Excision of Stomach, Via Natural or Artificial Opening Endoscopic, Diagnostic (ICD-10-PCS; 2018-11-24 13:30)
PROC: 0W9G3ZX Drainage of Peritoneal Cavity, Percutaneous Approach, Diagnostic (ICD-10-PCS; principal; 2018-11-27)
PROC: 0JH63WZ Insertion of Totally Implantable Vascular Access Device into Chest Subcutaneous Tissue and Fascia, Percutaneous Approach (ICD-10-PCS; 2018-11-27)
PROC: 02H633Z Insertion of Infusion Device into Right Atrium, Percutaneous Approach (ICD-10-PCS; 2018-11-27)
PROC: B244YZZ Ultrasonography of Right Heart using Other Contrast (ICD-10-PCS; 2018-11-27)
DX: C16.2 Malignant neoplasm of body of stomach (principal); K65.2 Spontaneous bacterial peritonitis; C78.6 Secondary malignant neoplasm of retroperitoneum and peritoneum; R18.0 Malignant ascites; N17.9 Acute kidney failure, unspecified; D63.0 Anemia in neoplastic disease; I12.9 Hypertensive chronic kidney disease with stage 1 through stage 4 chronic kidney disease, or unspecified chronic kidney disease; N18.9 Chronic kidney disease, unspecified; K20.9 Esophagitis, unspecified; K25.9 Gastric ulcer, unspecified as acute or chronic, without hemorrhage or perforation; D12.2 Benign neoplasm of ascending colon; K64.8 Other hemorrhoids; Z85.43 Personal history of malignant neoplasm of ovary
CPT/HCPCS: 36415; 36561; 71045; 74176; 76705; 76942; 80048; 80053; 80061; 81001; 81003; 82042; 82378; 83036; 83615; 83690; 83735; 83880; 84100; 84157; 84443; 84484; 85025; 85610; 85730; 86300; 86301; 86304; 87070; 87102; 87116; 88104; 88107; 88305; 88312; 88313; 88341; 88342; 89051; 93005; 93306; 93970; 96374; C1788; J0696; J1644; J1650; J1940; J2250; J2405; J3010; J7030; J7040; P9047